=== PATIENT | female | born 1940 | race Caucasian/White ===

== ENCOUNTER 2017-07-04 01:52 | Observation (INO) | payer MEDICARE ==
[2017-07-04] MEDS ORDERED: Nitroglycerin 2% Ointment 1 INCH/1 GM Packet ONE ×3 (02:12→09:45)
[2017-07-04] MEDS ORDERED: Nitroglycerin 0.4 MG TAB (25 Tab Bottle) ONE (02:12)
[2017-07-04 02:37] LABS: #Basophils 0.1 thou/uL (0.0-0.2); #Eosinphils 0.2 thou/uL (0.0-0.7); #Lymphocytes 2.7 thou/uL (1.20-3.40); #Monocytes 0.4 thou/uL (0.11-0.59); #Neutrophils 2.6 thou/uL (1.40-6.50); %Basophils 1.5 % (0.0-1.0); %Eosinophils 3.3 % (0.0-10.0); %Lymphocytes 45.3 % (21.0-51.0); %Monocytes 6.3 % (0.0-10.0); Hematocrit 44.8 % (36.0-47.0); Mean Platelet Volume 7.4 fL (7.4-10.4); Red Blood Cell (RBC) Count 4.48 mill/uL (4.20-5.40)
[2017-07-04 02:49] LABS: PTT 26.5 SEC (22.9-36.1); Prothrombin Time 12.2 SEC (12.0-14.7)
[2017-07-04 02:55] LABS: ALT (SGPT) 20 U/L (8-55); AST (SGOT) 28 U/L (5-34); Alkaline Phosphatase 91 U/L (40-150); Anion Gap 15 mmol/L (10-20); BUN (Urea Nitrogen) 19 mg/dL (9.8-20.1); Bilirubin, Total 0.6 mg/dL (0.2-1.2); CK (CPK) 93 U/L (29-168); Calc. Creatinine Clearance 0 mL/min (70-130); Carbon Dioxide 24 mmol/L (23-31); Chloride 106 mmol/L (98-107); Estimated GFR-MDRD 77; Globulin 3.6 g/dL (2.4-3.5); Lipase 39 U/L (8-78); Protein, Total 8.3 g/dL (6.0-8.3)
[2017-07-04 02:57] LABS: Troponin I Less than 0.010 ng/mL (< 0.028)
[2017-07-04] MEDS ORDERED: Morphine 10 MG/ML VIAL ONE (03:46)
[2017-07-04] MEDS ORDERED: Lidocaine Viscous Sol 2% 15 ml UD Cup ONE ×2 (03:47→07:23)
[2017-07-04] MEDS ORDERED: Mag-Al 1200 mg/1200 mg/30 ML UDCUP ONE (03:47)
[2017-07-04] MEDS ORDERED: methylPREDNISolone Sod Succ/PF 125 MG/2 ML VIAL ONE (03:51)
[2017-07-04] MEDS ORDERED: Famotidine/PF 20 mg/2ml Vial ONE (03:51)
[2017-07-04] MEDS ORDERED: diphenhydrAMINE 50 MG/ML VIAL ONE (03:51)
[2017-07-04] MEDS ORDERED: Ondansetron HCl/PF 4 MG/2 ML Vial ONE (04:09)
[2017-07-04 07:00] LABS: Troponin I Less than 0.010 ng/mL (< 0.028)
--- NOTE | 2017-07-04 08:21 | RAD ---
PORTABLE UPRIGHT FRONTAL CHEST: Date: 07/04/17 COMPARISON: None. HISTORY: Mid sternal chest pain radiating to the back. FINDINGS: No pneumothorax, pleural fluid, lobar consolidation, or alveolar edema. Heart and mediastinal contou r grossly unremarkable. IMPRESSION: No acute findings. POS: [facility]
[2017-07-04 09:35] LABS: Troponin I Less than 0.010 ng/mL (< 0.028)
--- NOTE | 2017-07-04 09:49 | CT ---
PRELIMINARY REPORT/[facility]/EMERGENCY AFTER HOURS PROCEDURE: EXAM: CT Angiography Chest With Intravenous Contrast CLINICAL HISTORY: 77 years old, female; Pain; Chest pain; Type not specified; Abdominal pain; Generalized; Patient HX: R/O dissection TECHNIQUE: Axial computed tomographic angiography images of the chest with intravenous contrast using pulmonary embolism protocol. CONTRAST: 100 mL of ISOVUE administered intravenously. COMPARISON: No relevant prior studies available. FINDINGS: Pulmonary arteries: The pulmonary arteries are not enlarged. There is no evidence of peripheral fill ing defects within the pulmonary arterial circulation to suggest pulmonary embolism. Aorta: There is no evidence of aortic dissection, leak, rupture, or other complications. The aorta i s normal. Lungs: There are scarring at the lung apices. No mass. Pleural space: Normal. No significant effusion. No pneumothorax. Heart: Normal. No cardiomegaly. No significant pericardial effusion. No evidence of RV dysfunction. Mediastinum: The trachea is normal. Thyroid: The thyroid gland is normal. Bones/joints: No acute fracture. No dislocation. Soft tissues: Normal. Lymph nodes: Normal. No enlarged lymph nodes. IMPRESSION: There is no evidence of aortic dissection, leak, rupture, or other complications. EXAM: CT Angiography Abdomen With Intravenous Contrast EXAM DATE/TIME: Exam ordered 07/04/2017 4:36 AM CLINICAL HISTORY: 77 years old, female; Pain; Chest pain; Type not specified; Abdominal pain; Generalized; Patient HX: R/O dissection TECHNIQUE: Axial computed tomographic angiography images of the abdomen with intravenous contrast. CONTRAST: 100 mL of ISOVUE administered intravenously. COMPARISON: No relevant prior studies available. FINDINGS: Aorta: There is no evidence of aortic dissection, leak, rupture, or other complications. The aorta i s normal. Celiac trunk and mesenteric arteries: No acute findings. No occlusion or significant stenosis. Renal arteries: No acute findings. No occlusion or significant stenosis. Liver: There are no focal liver lesions present. Gallbladder and bile ducts: The gallbladder is normal. There is no evidence of biliary ductal dilati on. No calcified stones. Pancreas: The pancreas is normal. No ductal dilation. Spleen: The spleen is normal. Adrenals: Normal. No mass. Kidneys and ureters: The left kidney is normal. The RIGHT kidney is slightly ectopic in location in the RIGHT pelvis, partially visualized. No hydronephrosis. Stomach and bowel: There is a markedly dilated loop of jejunum in the LEFT upper quadrant, incomplet judi visualized but suggestive of high-grade small bowel obstruction. The stomach is normal. No mucos al thickening. Intraperitoneal space: Normal. No significant fluid collection. No free air. Bones/joints: No acute fracture. No dislocation. Soft tissues: Normal. No mass. Lymph nodes: Normal. No enlarged lymph nodes. Other findings: There are clips within the LEFT upper quadrant. IMPRESSION: 1. There is no evidence of aortic dissection, leak, rupture, or other complications. 2. There is a markedly dilated loop of jejunum in the LEFT upper quadrant, incompletely visualized b ut suggestive of high-grade small bowel obstruction. Consider imaging of the abdomen with pelvis for further evaluation. Thank you for allowing us to participate in the care of your patient. Dictated and Authenticated by: Dionicio Joyce MD 07/04/2017 5:28 AM Central Time ([place] \T\ [place]) FINAL REPORT EMERGENCY/AFTER HOURS STUDY CT ANGIOGRAM THORAX WITH IV CONTRAST AND 3D RECONSTRUCTIONS: CT ANGIOGRAM ABDOMEN WITH IV CONTRAST AND 3D RECONSTRUCTIONS: 07/04/2017 HISTORY: Chest pain. IMPRESSION: 1. The thoracic and abdominal aorta are normal in caliber without evidence of an aortic dissection. 2. No CT evidence of a pulmonary embolus. 3. Patent mesenteric vessels. 4. Single patent bilateral renal arteries. 5. Mild chronic lung changes with biapical pleural and parenchymal scarring. 6. Surgical clips in the anterior abdomen. 7. Nonspecific dilated loop of small bowel in the visualized mid abdomen, incompletely imaged or ev aluated. A similar finding was seen on a prior study on 09/17/2004, but the degree of dilatation wa s less prominent. Findings appear to represent post surgical changes of this loop of bowel in this region. 8. Cholelithiasis. The findings are in agreement with the preliminary report by Ney. POS: [facility]
[2017-07-04] MEDS ORDERED: Ondansetron HCl/PF 4 MG/2 ML Vial IVP PRN (10:16)
[2017-07-04] MEDS ORDERED: Acetaminophen 325 MG TAB PO PRN (10:16)
[2017-07-04] MEDS ORDERED: Ondansetron ODT 4 MG TAB SL PRN (10:16)
[2017-07-04 10:53] VITALS: BMI 17.7
[2017-07-04] MEDS: Sodium Chloride 0.9% 1,000 ML IV SCH ×2 (11:11→22:05)
[2017-07-04] MEDS ORDERED: HYDROcodone/Acetaminophen 5/325 mg Tablet PO PRN (12:17)
[2017-07-04] MEDS ORDERED: Zolpidem Tartrate 5 MG TAB PO PRN (12:17)
--- NOTE | 2017-07-04 14:24 | HP ---
DATE OF ADMISSION: 07/04/2017 ADMITTING PHYSICIAN: Michael Cui M.D. HISTORY OF PRESENT ILLNESS: The patient is a 77-year-old female who states she was woken up early t his morning at approximately 2 a.m. with midsternal chest pain and discomfort, it seemed to radiate straight through to the back. She did not have any nausea, vomiting, diarrhea, some shortness of br eath. She states she was not able to find comfort. She denied any fevers associated with this. Stephanie syed has no prior history of atherosclerotic coronary artery disease. The pain continued, she did beco me somewhat concerned over her cardiac status. She brought herself to the emergency room with her evonne deleon. She was seen and evaluated in the emergency room. She states she was given some pain medic ine which seemed to relieve some of her pain. Initial evaluation did not reveal any source of cardi ac disease. She states she is now feeling better. As noted she has no prior history of atheroscler otic coronary artery disease. Otherwise, no other medical complaints are noted. She states she is feeling well. ALLERGIES: She is allergic to IODINE, NONSTEROIDAL ANTI-INFLAMMATORY AGENTS, PENICILLIN. CURRENT MEDICATIONS: Levothyroxine, atenolol and a muscle relaxer. PAST MEDICAL HISTORY: Significant for previous colon surgery requiring colonic resection due to can cer. She had her entire colon with large colon was removed. She has a previous history of appendec abimael. SOCIAL/PERSONAL HISTORY: She is . She does not smoke nor does she drink alcohol. REVIEW OF SYSTEMS: GASTROINTESTINAL: Negative. GENITOURINARY: Negative. CARDIOVASCULAR: Negative. PULMONARY: Otherwise negative. NEUROLOGIC: Otherwise, negative. FAMILY HISTORY: Noncontributory at this time. PHYSICAL EXAMINATION: VITAL SIGNS: Temperature 98.4, BP 153/65, pulse 66, respirations 16, O2 sats 96% on room air. GENERAL: She is alert, active, does not appear in any distress. HEENT: Normocephalic, atraumatic. Extraocular muscles are intact. Sclerae and conjunctivae clear. NECK: Supple, full range of motion, no bruits auscultated. Thyroid is midline without thyromegaly or thyroid masses. LUNGS: Clear. HEART: Reveals a regular rate and rhythm without murmurs, gallops or rubs. ABDOMEN: Soft, there are some minimal right upper quadrant tenderness, without rebound or guarding. Bowel sounds are present and active. No hepatosplenomegaly is noted. EXTREMITIES: No clubbing, edema or cyanosis. LABORATORY AND X-RAY: Her white blood count is 6.0, hemoglobin 14.6, hematocrit 44.8. Chemistry: Sodium 141, potassium 3.5, chloride 106, CO2 24, creatinine 0.74, serial cardiac enzymes, troponin x [address] scan dissection protocol was performed which did reveal no evidence of acute cardiac or pulmona ry issues. There was some consideration due to a markedly dilated loop of jejunum of the left lower quadrant, possible obstructive process. There is no physical or no clinical findings that support that at this time. Chest x-ray was clear. EKG revealed sinus rhythm. IMPRESSION: Midsternal chest pain and discomfort of acute onset. PLAN: 1. The patient will undergo nuclear medicine stress testing. 2. Right upper quadrant gallbladder ultrasound is to be performed. 3. Keep under observation through the night.
[2017-07-04] MEDS ORDERED: ISOVUE-370 76%-LOCM 1 ML ONE (15:37)
[2017-07-04] MEDS ORDERED: Famotidine/PF 20 mg/2ml Vial SLOW IVP SCH (16:00)
--- NOTE | 2017-07-04 16:28 | ULT ---
RIGHT UPPER QUADRANT ULTRASOUND: Date: 07-04-17 History: Right upper quadrant abdominal pain. FINDINGS: There is a nonmobile shadowing echogenic focus seen along the nondependent portion of the body of th e gallbladder wall, most consistent with a calcification. Given non-mobility, this could be related to adherent calcification, possibly calcification in the wall of the gallbladder. This calcification was seen on recent CT abdomen as well. There is a much smaller subcentimeter increased echogenic fo cus also seen in the nondependent portion of the gallbladder lumen which demonstrates minimal chief controller station ior shadowing and may represent additional calcification. No mobile gallbladder calculi are seen. Th ere is no gallbladder wall thickening or pericholecystic fluid seen. The common duct measures 0.5 cm in diameter which is within normal limits. The visualized portions of the IVC, visualized portions of the pancreas, and liver demonstrate a nor mal sonographic appearance. Right kidney is located within the right lower quadrant/upper pelvis. Kidney otherwise demonstrates a normal sonographic appearance but is rotated. IMPRESSION: 1. Calcifications along the nondependent portion of the gallbladder lumen which are nonmobile. Focal calcification of the gallbladder wall cannot be entirely excluded. No mobile gallbladder calculi ar e visualized. There is no gallbladder wall thickening or pericholecystic fluid. The common duct is n ormal in caliber. 2. There is a kidney located within the right upper pelvis. Based on recent CT abdomen, this is prob ably the patient's [facility] kidney. However, the right kidney, although rotated, does demonstrate a no rmal sonographic appearance. POS: [facility]
[2017-07-05] MEDS: Sodium Chloride 0.9% 1,000 ML IV SCH (05:43)
[2017-07-05] MEDS ORDERED: diphenhydrAMINE 25 MG CAP PO PRN (07:31)
[2017-07-05] MEDS ORDERED: Acetaminophen 325 MG TAB PO PRN (07:31)
[2017-07-05] MEDS ORDERED: Fish Oil 1,000 MG CAP PO SCH ×2 (09:00)
[2017-07-05] MEDS ORDERED: Calcium Carbonate + Vit D 1 TAB PO SCH (09:00)
[2017-07-05] MEDS ORDERED: Meloxicam 7.5 MG TAB PO SCH (09:00)
[2017-07-05] MEDS ORDERED: Atenolol 50 MG TAB PO SCH (09:00)
[2017-07-05] MEDS ORDERED: Levothyroxine Sodium 75 MCG TAB PO SCH (09:00)
[2017-07-05] MEDS ORDERED: Non-Formulary Item 1 EACH (Calcium Carbonate/Vitamin D3 [Calcium 600 + Vitamin D] 1 TABLE PO SCH (09:00)
--- NOTE | 2017-07-05 09:44 | PRG ---
DATE OF SERVICE: 07/05/2017 SUBJECTIVE: Ms. Meadows is resting comfortably. She had one episode of chest pain last night for w hich she received medication. PHYSICAL EXAMINATION: VITAL SIGNS: Blood pressure 159/68, temperature 98.5, pulse 65, O2 sat 98%. LUNGS: Clear. HEART: Reveals no murmur. IMAGING: Ultrasound report of her gallbladder shows possible intraluminal calcifications, it is dif ficult to figure out if it is entirely within the gallbladder or not. There is a kidney in the righ t upper pelvis, which correlated with CT scan shows that the kidney is not in anatomical location. No evidence of any other findings are otherwise noted. IMPRESSION: Chest pain. PLAN: 1. The patient will have a stress test today. 2. If stress test is negative, then we will need to consider gallbladder surgery.
[2017-07-05 10:50] VITALS: BP 157/77; TEMP 98
--- NOTE | 2017-07-05 14:38 | NM ---
NUCLEAR MEDICINE CARDIAC STRESS AND REST CARDIAC SPECT WITH EJECTION FRACTION AND WALL MOTION: History: 77-year-old female with chest pain and shortness of breath. FINDINGS: Adenosine sestamibi study was performed. Multiple images performed in the short axis and vertical an d horizontal long axis. No scan evidence for evidence for infarct or ischemia. TID 1.16 LHR 0.33 EDV 51 ml EF 87% IMPRESSION: Normal cardiac stress/rest with EF and wall motion. POS: [facility]
--- NOTE | 2017-07-05 17:21 | DIS ---
DATE OF ADMISSION: 07/04/2017 DATE OF DISCHARGE: 07/05/2017 DISCHARGE DIAGNOSIS: Chest pain, probably related to cholelithiasis. ADMITTING PHYSICIAN: Dr. Michael Cui. HOSPITAL SUMMARY: The patient is a 77-year-old female who presented to the emergency room complaini ng of mid epigastric pain. She was seen and evaluated in the ER, acute coronary syndrome was ruled out by examination, EKG as well as cardiac enzymes. She underwent further cardiac stress testing wh ich was normal. Gallbladder ultrasound did reveal probable intraluminal stones, could not tell they were adhered to the gallbladder wall. No evidence of any cholecystitis was otherwise noted and the patient's hospital course was otherwise unremarkable. She was discharged home on her home medicati ons. I discussed the findings was discussed with the patient and her . Stress test being no rmal, I thought she can proceed with surgical consult. She has requested Dr. Judd's referral made after discharge.
[2017-07-05] MEDS ORDERED: Acetaminophen 500 MG TAB PO SCH (21:00)
[2017-07-05] MEDS ORDERED: diphenhydrAMINE 25 MG CAP PO SCH (21:00)
--- NOTE | 2017-07-09 13:46 | EKG ---
Test Reason : Blood Pressure : / mmHG Vent. Rate : 073 BPM Atrial Rate : 073 BPM P-R Int : 000 ms QRS Dur : 072 ms QT Int : 410 ms P-R-T Axes : 000 065 006 degrees QTc Int : 451 ms Normal sinus rhythm with 1st degree A-V block Nonspecific T wave abnormality Abnormal ECG Confirmed by KAYLIE BUCKNER, JACOB ([id number]), acquisitions editor SHILPA SOLANO ([id number]) on 07/09/2017 1:46:23 PM Referred By: Confirmed By:JACOB LOTT MD
--- NOTE | 2017-07-09 13:54 | EKG ---
Test Reason : Blood Pressure : / mmHG Vent. Rate : 055 BPM Atrial Rate : 055 BPM P-R Int : 128 ms QRS Dur : 076 ms QT Int : 448 ms P-R-T Axes : 084 062 038 degrees QTc Int : 428 ms Sinus bradycardia Otherwise normal ECG Confirmed by KAYLIE BUCKNER, JACOB ([id number]), health editor SHILPA SOLANO ([id number]) on 07/09/2017 1:54:22 PM Referred By: Confirmed By:JACOB LOTT MD
[2017-07-12] MEDS ORDERED: Alendronate Sodium 70 mg Tablet PO SCH (06:00)
== END 2017-07-05 13:44 | disposition home or self-care (01) ==
LOC: ERS 01:52 → ERHOLD 06:09 → 2NO 10:05
PROVIDERS: ADMIT Family Medicine; ATTEND Family Medicine
DX: R07.89 Other chest pain (principal); Z91.041 Radiographic dye allergy status; Z88.6 Allergy status to analgesic agent; Z88.0 Allergy status to penicillin
CPT/HCPCS: 71010; 71275; 76705; 78452; 80053; 82550; 82553; 83690; 84484 ×2; 85025; 85610; 85730; 93005; 93017; 94760; 96361 ×3; 96374; 96375; 96376 ×2; 99285; A9500; G0378; 36415; A4216; J0153; J1200; J2270; J2405; J2930; S0028

== ENCOUNTER 2017-07-08 08:27 | Day surgery (SDC) | payer MEDICARE ==
--- NOTE | 2017-07-05 14:41 | HP ---
HISTORY OF PRESENT ILLNESS: Audrey Meadows is a 77-year-old female hospitalized with epigastric p ain and back radiation this hospitalization by Dr. Michael Cui. The patient had a cardiac nuclear stress test negative for ischemia, normal cardiac function. CT scan dissection protocol performed and it was normal. Ultrasound of the abdomen obtained suspecting biliary etiology 07/04/2017 reveal ed gallstones with bile duct of 5 mm. Patient's laboratories reveal hemoglobin of 14 and white coun t of 6. Liver function tests are normal. Basic metabolic profile normal. The patient has been dis charged home today. Dr. Cui asked me to see her regarding her cholelithiasis. She desires laparo scopic cholecystectomy as an outpatient later today. She will call the office and we will schedule this. ALLERGIES: IODINE, NSAIDS, PENICILLINS. TOBACCO: None. ALCOHOL: None. MEDICATIONS: Benadryl p.r.n., Mobic 7.5 mg a day, Synthroid 75 mcg a day, calcium 600 plus vitamin D daily, atenolol 50 mg daily, Fosamax 70 mg every 7 days, and Tylenol p.r.n. PAST SURGICAL HISTORY: Appendectomy as a child, total abdominal colectomy and ileoproctostomy due t o colon cancer and diffuse polyps, ureteral stent placed in the past and removed. PAST MEDICAL HISTORY: History of colon cancer. LABORATORIES: As noted above. PHYSICAL EXAMINATION: VITAL SIGNS: On exam, 5 feet and 6, 110 pounds, 17 BMI, 98 degrees, 71, 157/77. HEAD, EARS, EYES, NOSE, AND THROAT: Unremarkable. Sclerae nonicteric. Skin nonjaundiced. Lymphad enopathy not present in neck, axilla, or groins. NEUROLOGIC: Neurologically intact. No focal deficits. No ankle edema. Palpable pedal pulses. W rist, positive pulses. LUNGS: Clear to auscultation. CARDIAC: Regular rate and rhythm without murmur or gallop. ABDOMEN: Soft, flat, nondistended, nontender, no masses. Well-healed midline scar in abdomen from previous colectomy. EXTREMITIES: Unremarkable. ASSESSMENT AND PLAN: Symptomatic cholelithiasis. Recommend laparoscopic video cholecystectomy. kunal will call the office when she is ready to schedule. I have discussed with her risk of operation i ncluding infection, bleeding, reoperation, biliary injury, possibly open procedure and she consents.
[2017-07-07 13:51] VITALS: BMI 17.7
[2017-07-08] MEDS ORDERED: Lidocaine 2% w/Epinephrine 1:200K 20 ML VIAL ONE (08:39)
[2017-07-08] MEDS ORDERED: Bupivacaine PF 0.5% 30 ML VIAL ONE (08:39)
[2017-07-08] MEDS ORDERED: Fentanyl 250 MCG/5 ML VIAL ONE (09:05)
[2017-07-08] MEDS ORDERED: Levofloxacin 500 mg/D5W 100 ml Premix Bag ONE (09:08)
[2017-07-08] MEDS ORDERED: Glycopyrrolate 0.2 MG/ML 5 ML SYRINGE ONE (09:46)
[2017-07-08] MEDS ORDERED: Lidocaine 1% PF 5 ML VIAL ONE (09:46)
[2017-07-08] MEDS ORDERED: Propofol 200 MG/20 ML VIAL ONE (09:46)
[2017-07-08] MEDS ORDERED: Ondansetron HCl/PF 4 MG/2 ML Vial ONE (09:46)
--- NOTE | 2017-07-08 11:15 | OP ---
DATE OF PROCEDURE: 07/08/2017 PREOPERATIVE DIAGNOSES: History of total abdominal colectomy, ileoproctostomy, anastomosis, open pr ocedure laparotomy xiphoid to pubis, cholecystitis, cholelithiasis. POSTOPERATIVE DIAGNOSIS: History of total abdominal colectomy, ileoproctostomy anastomosis, open pr ocedure laparotomy xiphoid to pubis, cholecystitis and cholelithiasis. Adhesions from prior surgery . PROCEDURE: Laparoscopic adhesiolysis, laparoscopic cholecystectomy. NOTE: Adhesiolysis was required to gain access to the operative site. Adhesions were extensive fro m prior open colectomy. SURGEON: Dr. Michael Judd ANESTHESIA: General. Local 0.5% Marcaine, 30 mL, mixed with 2% Xylocaine with epinephrine 10 mL. PROCEDURE IN DETAIL: The patient was taken to the operating room where under general anesthesia, ab cortes was prepared with ChloraPrep, draped in routine fashion. Due to the prior midline laparotomy scar, right subcostal midclavicular incision made and pneumoperitoneum attempted with the Veress nee dle, but I did not get good return pressure, thus the right xiphoid incision made and pneumoperitone um to 15 mmHg obtained with the Veress needle, replacing it with a 5 port under laparoscopic visuali zation placement of the port. This was then exchanged for an 11 port, once it was noted to be in go od location. Right lateral subcostal ports placed midclavicular and anterior axillary lines and 5 p orts placed. These were placed under laparoscopic visualization. There were adhesions in the midli ne, cleared with laparoscopic sharp dissection and clearing enough adhesions to gain access to the s upraumbilical midline scar where incision was made and a 5 port placed and laparoscope moved to this port. At this point, the liver was densely adhesed to underlying viscera. I did find an area late rally where there were filmy adhesions to the lateral edge of the liver that I could visualize and c arefully took these down lateral to medial, identifying the gallbladder, grasping the gallbladder fu ndus, reflecting it cephalad and dissecting adhesions from the gallbladder body down to the infundib ulum which was grasped and reflected laterally. Cystic artery and duct revealed a critical view 2/3 the cystic plate, cystic artery and duct doubly clipped proximally, divided, and gallbladder dissec anastasia free from the liver bed obtaining good hemostasis prior to division of final peritoneal attachme nts. Gallbladder and contents removed and submitted to Pathology. Good hemostasis ensured with cau sharon. Irrigant and pneumoperitoneum evacuated. All instruments removed and all skin incisions appr oximated with interrupted subdermal 4-0 Monocryl and DermaGlue applied.
[2017-07-08] MEDS ORDERED: Fentanyl 100 MCG/2 ML VIAL ONE (11:21)
[2017-07-08] MEDS ORDERED: Promethazine HCl 25 MG/ML VIAL ONE (12:07)
== END 2017-07-08 12:50 | disposition home or self-care (01) ==
LOC: SDC 08:27
PROVIDERS: ATTEND Specialist
PROC: 0FT44ZZ Resection of Gallbladder, Percutaneous Endoscopic Approach (ICD-10-PCS; principal; 2017-07-08)
DX: K80.12 Calculus of gallbladder with acute and chronic cholecystitis without obstruction (principal); K82.8 Other specified diseases of gallbladder; Z79.1 Long term (current) use of non-steroidal anti-inflammatories (NSAID); Z79.899 Other long term (current) drug therapy; Z88.0 Allergy status to penicillin; Z88.6 Allergy status to analgesic agent; Z91.041 Radiographic dye allergy status; Z96.1 Presence of intraocular lens; Z90.49 Acquired absence of other specified parts of digestive tract; Z98.890 Other specified postprocedural states; Z85.038 Personal history of other malignant neoplasm of large intestine
CPT/HCPCS: 88304; 96374; J0131; J1956; J2001; J2270; J2405; J2550; J2704; J3010; S0020

== ENCOUNTER 2017-07-29 06:56 | Inpatient (IN) | payer MEDICARE ==
[2017-07-29] MEDS ORDERED: Nitroglycerin 0.4 MG TAB (25 Tab Bottle) ONE (07:15)
[2017-07-29] MEDS ORDERED: Clopidogrel Bisulfate 75 MG TAB ONE (07:15)
[2017-07-29] MEDS ORDERED: Ondansetron HCl/PF 4 MG/2 ML Vial ONE (07:21)
[2017-07-29 07:25] LABS: #Basophils 0.1 thou/uL (0.0-0.2); #Eosinphils 0.3 thou/uL (0.0-0.7); #Lymphocytes 2.3 thou/uL (1.20-3.40); #Monocytes 0.3 thou/uL (0.11-0.59); #Neutrophils 2.1 thou/uL (1.40-6.50); %Basophils 1.5 % (0.0-1.0); %Monocytes 5.2 % (0.0-10.0); Hematocrit 43.6 % (36.0-47.0); Mean Platelet Volume 6.8 fL (7.4-10.4); Red Blood Cell (RBC) Count 4.38 mill/uL (4.20-5.40); White Blood Cell (WBC) Count 5.1 thou/uL (4.8-10.8)
[2017-07-29 07:44] LABS: ALT (SGPT) 34 U/L (8-55); AST (SGOT) 82 U/L (5-34); Alkaline Phosphatase 172 U/L (40-150); Anion Gap 12 mmol/L (10-20); BUN (Urea Nitrogen) 15 mg/dL (9.8-20.1); Bilirubin, Total 1.1 mg/dL (0.2-1.2); CK (CPK) 73 U/L (29-168); Calc. Creatinine Clearance 0 mL/min (70-130); Calcium 9.9 mg/dL (7.8-10.44); Carbon Dioxide 29 mmol/L (23-31); Chloride 104 mmol/L (98-107); Estimated GFR-MDRD 73; Globulin 3.3 g/dL (2.4-3.5); Lipase 28 U/L (8-78); Protein, Total 7.6 g/dL (6.0-8.3)
[2017-07-29 07:48] LABS: Troponin I Less than 0.010 ng/mL (< 0.028)
[2017-07-29] MEDS ORDERED: Nitroglycerin 2% Ointment 1 INCH/1 GM Packet ONE (07:53)
--- NOTE | 2017-07-29 09:13 | RAD ---
PORTABLE CHEST 1 VIEW: Date: 07/29/17 HISTORY: 77-year-old female with history of chest pain. COMPARISON: 07/04/17. FINDINGS: Monitor leads overlie the chest. Increased linear and interstitial markings bilaterally, consistent w ith some stable chronic change. There is borderline hyperinflation. Biapical pleural thickening. IMPRESSION: Stable chronic changes. No acute intrathoracic disease. POS: [facility]
[2017-07-29] MEDS ORDERED: Morphine 4 MG/ML VIAL ONE (09:16)
--- NOTE | 2017-07-29 10:24 | ULT ---
GALLBLADDER ULTRASOUND: History: 77-year-old female with abdominal pain and chest pain status post gallbladder removal. FINDINGS: Somewhat diffuse coarse liver echogenicity. Common bile duct 0.3 cm. No intrahepatic ductal dilation. Visualized pancreas and right kidney are unremarkable. IMPRESSION: Status post cholecystectomy. No ductal dilatation. No other significant acute process. POS: [facility]
[2017-07-29 12:45] LABS: Troponin I Less than 0.010 ng/mL (< 0.028)
[2017-07-29] MEDS ORDERED: Ondansetron ODT 4 MG TAB PO PRN (12:45)
[2017-07-29] MEDS ORDERED: Ondansetron HCl/PF 4 MG/2 ML Vial IVP PRN (12:45)
[2017-07-29 12:51] VITALS: BMI 16.7
[2017-07-29] MEDS ORDERED: Acetaminophen 500 MG TAB PO PRN (14:34)
[2017-07-29] MEDS ORDERED: traMADol HCl 50 MG TAB PO PRN ×2 (16:08→20:37)
--- NOTE | 2017-07-29 16:17 | CON ---
DATE OF CONSULTATION: 07/29/2017 REASON FOR CONSULTATION: Chest pain. PRIMARY CARE PROVIDER: Dex Norris M.D. HISTORY OF PRESENT ILLNESS: Ms. Meadows is a pleasant 77-year-old woman who recently presented with chest pain. She states she awoke at 6 a.m. with pain. She states her pain is better with lying on h er right side, worse with lying on her left side and lying supine. No nausea, vomiting, diaphoresis or other associated symptoms. She has no previous history of underlying coronary artery disease. PAST MEDICAL HISTORY: Cholecystectomy and appendectomy. ALLERGIES: IODINE, PENICILLIN, and NONSTEROIDAL THERAPY. MEDICATIONS: Include levothyroxine and atenolol. SOCIAL HISTORY: No current tobacco or alcohol use. REVIEW OF SYSTEMS: Ten point review of systems reviewed and as above, otherwise negative. PHYSICAL EXAMINATION: GENERAL: Patient is a pleasant female who is in no acute distress. The patient appears her stated a ge. VITAL SIGNS: Blood pressure 136/63, pulse 63, temperature 97.9. NEUROLOGIC: The patient is alert and oriented times 3 with no focal neurologic deficits. HEENT: Sclerae without icterus. Mouth has moist mucous membranes with normal pallor. NECK: No JVD. Carotid upstroke brisk. No bruits bilaterally. LUNGS: Clear to auscultation with unlabored respirations. BACK: No scoliosis or kyphosis. CARDIAC: Regular rate and rhythm with normal S1 and S2. No S3 or S4 noted. No significant rubs, mu rmurs, thrills, or gallops noted throughout the precordium. PMI is not displaced. There is no jake ternal heave. ABDOMEN: Soft, nontender, nondistended. No peritoneal signs present. No hepatosplenomegaly. No abnormal striae. EXTREMITIES: 2+ femoral and 2+ dorsalis pedis pulses. No cyanosis, clubbing, or edema. SKIN: No gross abnormalities. PERTINENT LABORATORY DATA AND IMAGIN. CK and troponin negative. 2. Hemoglobin 14.3, troponin negative. 3. EKG: Normal sinus rhythm, normal EKG. When compared to previous EKG, no changes are noted. IMPRESSION: Atypical chest pain. RECOMMENDATIONS: We will add tramadol in addition to Tylenol. She is allergic to NONSTEROIDAL thera py. May need to ask what her true allergy is because she would likely benefit from ibuprofen in alice tion to Toradol. If her symptoms continue, may consider a noninvasive stress study. She does state though she had a noninvasive stress study performed recently and her director of human resources is Dr. Dex frances although there is no history of patient being seen in the office by Dr. Dex Norris. Recommend kunal bruno with Doppler.
[2017-07-29] MEDS ORDERED: Zolpidem Tartrate 5 MG TAB PO PRN (20:33)
[2017-07-29] MEDS ORDERED: cloNIDine 0.1 MG TAB PO PRN (20:34)
[2017-07-29] MEDS ORDERED: Ondansetron ODT 4 MG TAB SL PRN (20:35)
[2017-07-29] MEDS: Atenolol 50 MG TAB PO SCH (21:03)
--- NOTE | 2017-07-29 21:20 | HP ---
HISTORY OF PRESENT ILLNESS: Ms. Meadows is a pleasant 77-year-old female treated by Dr. Jazlyn Cui, who was hospitalized for chest pain. She reports being in her usual state of health unt ny about 6:00 this morning when she was just doing nonexertional chores around the house when she beg an having some chest pain that was fairly intense that she describes as "like a ton of bricks." It w as at her sternum and radiated to her back, was associated with nausea, but no diaphoresis and no maksim rtness of breath. She was previously hospitalized on 07/04 and had a negative stress test for a chance lar chest pain, but what did happen was that the gallstones were noted and she subsequently underwent an apparent uncomplicated laparoscopic cholecystectomy. PAST MEDICAL HISTORY: 1. Negative cardiac stress test a few weeks ago. 2. Colon cancer, status post multiple subtotal colectomies with an eventual entire colectomy. She a lso reports lysis of adhesions. She has also had an appendectomy, ?ureteral obstruction, status post stent placement. PAST MEDICAL HISTORY: 1. History of hypertension without current medications for such. 2. Hypothyroidism. 3. Postmenopausal state. 4. History of dysrhythmia treated with medication (exact diagnosis at this time unknown). 5. Bilateral macular degeneration. CURRENT MEDICATIONS: 1. Synthroid 75 mcg daily. 2. Atenolol 50 mg daily. ALLERGIES AND SENSITIVITIES: ASPIRIN causes a rash, PENICILLIN causes rash and IODINE causes rash. SOCIAL HISTORY: The patient is to her Casey for many years. They have 3 children. 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 Her shinto preference is Hinduism of [facility] and she attends bible classes. Records revealed that she is a nonsmoker and does not drink alcoh ol. PHYSICAL EXAMINATION: VITAL SIGNS: Weight 104 pounds, blood pressure 136/63, O2 sat 96%, respiratory rate 16, pulse 63 and temperature 97.9. GENERAL: Alert, pleasant, in no acute distress. Somewhat loquacious at times. HEAD: Normocephalic, atraumatic. No conjunctivitis. Oral cavity without erythema or exudate. NECK: Supple without lymphadenopathy or thyromegaly. LUNGS: Clear to auscultation without crackles or wheezes. CARDIAC: Regular rate and rhythm without murmur, gallop or rub. ABDOMEN: Soft, nontender, bowel sounds present. SKIN: With normal texture and appearance. EXTREMITIES: Without clubbing, cyanosis or edema. NEUROLOGIC: 5/5 motor strength in her biceps, triceps, handgrips, plantar flexion and dorsiflexion. LABORATORY AND X-RAY FINDINGS: White blood cell count 5.1 and hemoglobin 14.3. INR is 0.9. Basic m etabolic panel is essentially normal. Troponin I not elevated. Electrocardiogram reported is normal (hard copy not available on the chart at this time), but is requested) ASSESSMENT: 1. Chest pain with a worrisome description and negative recent evaluation. 2. Hypothyroidism. 3. Report of hypertension. 4. Colon cancer, status post multiple surgeries and radiation therapy. 4. History of abdominal adhesions. PLAN: 1. Hospitalization. 2. Serial cardiac enzymes. 3. Cardiology consultation.
[2017-07-30] MEDS ORDERED: Acetaminophen 500 MG TAB PO PRN (02:00)
[2017-07-30] MEDS: traMADol HCl 50 MG TAB PO PRN ×2 (03:24→08:25)
[2017-07-30] MEDS: Levothyroxine Sodium 75 MCG TAB PO SCH (05:13)
[2017-07-30] MEDS ORDERED: predniSONE 20 MG TAB PO SCH ×2 (08:00→09:00)
[2017-07-30] MEDS: Calcium Carbonate + Vit D 1 TAB PO SCH (08:27)
[2017-07-30] MEDS: Fish Oil 1,000 MG CAP PO SCH (08:27)
[2017-07-30] MEDS: Ondansetron HCl/PF 4 MG/2 ML Vial IVP PRN ×2 (12:17→19:15)
--- NOTE | 2017-07-30 14:49 | PRG ---
DATE OF SERVICE: 07/30/2017 ROOM: 244. SUBJECTIVE: Ms. Meadows was hospitalized yesterday for chest pain. She had no elevation in her trop onin I testing. She was seen in consultation by Cardiology who believes her chest pain symptoms to b e likely noncardiac in origin. An echo with Doppler study is ordered and not yet resulted. The diego ent indicates still having periodic chest pain that occurs with the change of position in her bed. S he notes if she lies on one side or the other, the chest pain is more prominent. She also reports ta martita medications like Motrin in the past and the problem with such medication is she reports having s ome gastrointestinal bleeding. She reports that this is not a recent occurrence. PHYSICAL EXAMINATION: VITAL SIGNS: Weight 103 pounds, blood pressure 142/68, temperature 98.3, pulse 58, respiratory rate 18, O2 saturation 98%. GENERAL: Alert, pleasant, no acute distress. HEENT: No conjunctivitis. LUNGS: Clear to auscultation without crackles or wheezes. CARDIAC: Regular rate and rhythm without murmur, gallop or rub. ABDOMEN: Soft, nontender. EXTREMITIES: Normal appearing lower extremities without edema. There is some mild chest wall tender ness with palpation that is not so well localized. ASSESSMENT: 1. Chest pain that appears to be more musculoskeletal instead of cardiac. 2. Status post recent cholecystectomy. 3. History of colon cancer. 4. Joint pain/arthritis predating this hospitalization. 5. Report of GI bleeding with ibuprofen, but not recently. 6. History of hypothyroidism. 7. Report of hypertension. PLAN: 1. Increase dose of steroid use. 2. Ambulation. 3. Await echocardiogram with Doppler report.
--- NOTE | 2017-07-30 17:07 | PDOC.CTH ---
Cardiology Progress Note - Subjective No new issues. She continues to have chest pain on her left side when moving around and better by getting on her left side. - Objective Vital Signs Temp Pulse Resp BP BP Pulse Ox 07/30/17 11:36 98.1 F 63 16 144/66 H 98 07/30/17 08:00 98.3 F 58 L 18 07/30/17 07:45 58 L 18 129/60 98 Admit Weight 103 lb Weight 103 lb 6.4 oz 07/29/17 07/30/17 07/31/17 06:59 06:59 06:59 Intake Total 290 Output Total 700 Balance -410 - Physical Examination General/Neuro: alert & oriented x3, NAD Neck: no JVD present Lungs: CTA, unlabored respirations Heart: RRR Abdomen: NT/ND Extremities: + edema B (none) - Telemetry Telemetry Rhythm: NSR - Labs Result Diagrams: 07/29/17 07:09 07/29/17 07:09 Troponin/CKMB CK-MB (CK-2) 2.2 ng/mL (0-6.6) 07/29/17 07:09 Troponin I 0.010 ng/mL (< 0.028) 07/29/17 14:21 - Assessment/Plan 1. Chest pain, likely chest wall pain. PLAN: - Negative stress test Jul 04. - Atypical symptoms, most likely musculoskeletal. - No new recs.
[2017-07-30] MEDS: Atenolol 50 MG TAB PO SCH (20:32)
[2017-07-31] MEDS: Levothyroxine Sodium 75 MCG TAB PO SCH (05:16)
[2017-07-31] MEDS: Ondansetron HCl/PF 4 MG/2 ML Vial IVP PRN ×2 (06:03→11:32)
[2017-07-31] MEDS: traMADol HCl 50 MG TAB PO PRN ×2 (06:36→19:26)
[2017-07-31] MEDS ORDERED: Acetaminophen 500 MG TAB PO PRN (07:24)
[2017-07-31] MEDS ORDERED: traMADol HCl 50 MG TAB PO PRN (07:24)
[2017-07-31] MEDS: Fish Oil 1,000 MG CAP PO SCH (08:52)
[2017-07-31] MEDS: Calcium Carbonate + Vit D 1 TAB PO SCH (08:52)
[2017-07-31 08:57] LABS: ALT (SGPT) 169 U/L (8-55); AST (SGOT) 85 U/L (5-34); Alkaline Phosphatase 336 U/L (40-150); Anion Gap 14 mmol/L (10-20); BUN (Urea Nitrogen) 31 mg/dL (9.8-20.1); Bilirubin, Total 1.1 mg/dL (0.2-1.2); Calc. Creatinine Clearance 38 mL/min (70-130); Calcium 8.9 mg/dL (7.8-10.44); Carbon Dioxide 23 mmol/L (23-31); Chloride 105 mmol/L (98-107); Estimated GFR-MDRD 58; Globulin 3.1 g/dL (2.4-3.5); Lipase 9 U/L (8-78); Protein, Total 6.9 g/dL (6.0-8.3)
[2017-07-31] MEDS ORDERED: Alendronate Sodium 70 mg Tablet PO SCH (09:00)
[2017-07-31] MEDS ORDERED: Levothyroxine Sodium 75 MCG TAB PO SCH (09:00)
[2017-07-31] MEDS ORDERED: Sucralfate 1 GM/10 ML UDCUP PO SCH (09:00)
[2017-07-31] MEDS ORDERED: Non-Formulary Item 1 EACH (Calcium Carbonate/Vitamin D3 [Calcium 600 + Vitamin D] 1 TABLE PO SCH (09:00)
[2017-07-31] MEDS ORDERED: Fish Oil 1,000 MG CAP PO SCH (09:00)
[2017-07-31] MEDS ORDERED: Atenolol 50 MG TAB PO SCH (09:00)
--- NOTE | 2017-07-31 10:00 | PRG ---
DATE OF SERVICE: 07/31/2017 SUBJECTIVE: Ms. Meadows continues to have some pain in her chest, particularly when she moves from s brianna to side or rolls over in bed. She further has had some nausea and some emesis with this occurrin g when she attempts to eat food. PHYSICAL EXAMINATION: VITAL SIGNS: Blood pressure 110/54, pulse 57, temperature 98.0 and 98% O2, weight 102 pounds, input 804 mL, output 450 mL, balance positive 354. GENERAL: Alert, pleasant, in no acute distress, lying in the supine position in her hospital bed. S he is able to speak coherently and engaging in normal conversation. Her breathing is nonlabored. LUNGS: Clear to auscultation. CARDIAC: Regular rate and rhythm without murmur. ABDOMEN: Soft, nontender. SKIN: With normal texture and appearance. ASSESSMENT: 1. Apparent musculoskeletal/chest wall pain. Recent noninvasive cardiac stress testing which reveal ed no ischemia. Echocardiogram revealed 60%-65% ejection fraction with some diastolic dysfunction. No appreciable valvular heart disease. 2. Nausea with some emesis and do not suspect gastroenteritis at this time. My concern is for some medication-induced nausea and she may benefit from discontinuing some medication, continuing an antie metic and adding proton pump inhibitor. PLAN: 1. Delete Meloxicam and prednisone from her medication regimen. 2. Continue tramadol for pain. 2. Add a proton pump inhibitor.
[2017-07-31] MEDS: Sucralfate 1 GM/10 ML UDCUP PO SCH ×2 (11:32→16:18)
[2017-07-31] MEDS ORDERED: Ondansetron HCl/PF 4 MG/2 ML Vial IVP PRN (15:59)
[2017-07-31] MEDS ORDERED: Ondansetron ODT 4 MG TAB SL PRN (15:59)
[2017-07-31] MEDS: Atenolol 50 MG TAB PO SCH (19:25)
[2017-07-31] MEDS ORDERED: ALPRAZolam 0.25 MG TAB PO PRN (21:28)
[2017-07-31] MEDS ORDERED: Diltiazem 125 MG in Sodium Chloride 0.9% 100 ML IVPB SCH (21:30)
[2017-08-01] MEDS: Levothyroxine Sodium 75 MCG TAB PO SCH (05:15)
[2017-08-01] MEDS: Calcium Carbonate + Vit D 1 TAB PO SCH (09:13)
[2017-08-01] MEDS: Sucralfate 1 GM/10 ML UDCUP PO SCH ×2 (09:13→12:15)
[2017-08-01] MEDS: Fish Oil 1,000 MG CAP PO SCH ×2 (09:13→09:14)
[2017-08-01 09:20] VITALS: TEMP 97.5
--- NOTE | 2017-08-01 14:37 | DIS ---
Ms. Meadows is doing better today. She has had no further vomiting. She feels like she can go home. She has had no further chest pain. PHYSICAL EXAMINATION: VITAL SIGNS: Temperature 97.5, BP 109/81. LUNGS: Clear. HEART: Reveals no murmur. ABDOMEN: Soft, nontender. Bowel sounds present. IMPRESSION: Abdominal pain, chest pain, appears to be related to recurrent gastritis. PLAN: She will be discharged home today and follow up with me in 3 days.
[2017-08-01 14:39] VITALS: BP 131/82
--- NOTE | 2017-08-01 15:05 | PQF ---
CLINICAL DOCUMENTATION IMPROVEMENT CLARIFICATION FORM: ICD-10 Updated PLEASE DO AN ADDENDUM TO THE PROGRESS NOTE WITH ANY DOCUMENTATION UPDATES OR ADDITIONS AND CARRY THROUGH TO DC SUMMARY. THANK YOU. Date: 08/01/17 ATTN: Dr. Michael Cui Please exercise your independent, professional judgment in responding to the clarification form. 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 BMI 16.7 W/ A 6% WT LOSS IN LESS THAN 1 MONTH, GENERALIZED MUSCLE WASTING OBSERVED W/ SEVERE WASTING TO THE SHOULDERS & CHEST & LITTLE VISCERAL FAT. RISKS: H&P: HX OF COLON CANCER, S/P MULTIPLE SUBTOTAL COLECTOMIES W/ AN EVENTUAL ENTIRE COLECTOMY. 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 Thank you, Jaylin (This form is maintained as a part of the permanent medical record) 2015 [employer]. All Rights Reserved Jaylin Blackmon RN, BSN [email or web address] Office: [phone] [facility]
--- NOTE | 2017-08-02 00:51 | DIS ---
DATE OF ADMISSION: 07/29/2017 DATE OF DISCHARGE: 07/31/2017 DISCHARGE DIAGNOSES: 1. Abdominal epigastric pain, chest pain. 2. Probable gastritis. 3. Status post recent cholecystectomy. ADMITTING PHYSICIAN: Dr. Michael Cui. CONSULTING PHYSICIAN: Dr. Garcia. HOSPITAL SUMMARY: A 77-year-old female who had recently been admitted here for chest pain, had stres s test done approximately 3 weeks ago, which was normal. She underwent cholecystectomy as a result o f her chest pain from 3 weeks ago. She presented to the emergency room complaining of substernal pallavi st pain and discomfort. She was readmitted and Cardiology consult was obtained, this did not represe nt further cardiac disease. She continued to have episodes of vomiting. She was subsequently placed on pantoprazole. Her vomiting was stopped. She was able to be discharged home on 08/01/2017 having tolerating regular diet. DISCHARGE MEDICATIONS: Include pantoprazole 40 mg daily, Zofran 4 mg as needed for nausea and vomiti ng. She will be maintained on her home doses of acetaminophen, Xanax 0.25 mg every six hours, atenol ol 50 mg daily, calcium 1 tab daily, diltiazem 125 mg daily, tramadol 50 mg as needed for pain, zolpi dem 5 mg as needed for sleep. DISCHARGE PLAN: She will follow up with me in 3 days.
== END 2017-08-01 15:26 | disposition home or self-care (01) | DRG 392 ==
LOC: ERS 06:56 → 2SW 11:06 → OBSVTOIN 11:06 → 2NO 07-31 11:42 → 2SW 07-31 11:50 → 2NO 07-31 12:16
PROVIDERS: ADMIT Family Medicine; ATTEND Family Medicine
DX: K29.70 Gastritis, unspecified, without bleeding (principal); I10 Essential (primary) hypertension; M19.90 Unspecified osteoarthritis, unspecified site; E03.9 Hypothyroidism, unspecified; Z85.038 Personal history of other malignant neoplasm of large intestine; Z88.0 Allergy status to penicillin; Z88.8 Allergy status to other drugs, medicaments and biological substances; Z91.09 Other allergy status, other than to drugs and biological substances; Z92.3 Personal history of irradiation
CPT/HCPCS: 36415; 71010; 76705; 80053; 82553; 83690; 84484; 85025; 93005; 93306; 96374; 96375; A4216; J2270; J2405; J7050; J7506; Q0162

== ENCOUNTER 2018-02-03 09:18 | Emergency (ER) | payer MEDICARE ==
[2018-02-03 09:54] LABS: #Basophils 0.1 thou/uL (0.0-0.2); #Eosinphils 0.1 thou/uL (0.0-0.7); #Lymphocytes 1.4 thou/uL (1.20-3.40); #Monocytes 0.4 thou/uL (0.11-0.59); #Neutrophils 2.6 thou/uL (1.40-6.50); %Basophils 1.4 % (0.0-1.0); %Eosinophils 1.6 % (0.0-10.0); %Lymphocytes 30.4 % (21.0-51.0); %Neutrophils 58.6 % (42.0-75.0); Hemoglobin 15.2 g/dL (12.0-16.0); Mean Corpuscular Hemoglobin 32.9 pg (27.0-31.0); Mean Corpuscular Volume 96.7 fl (81.0-99.0); Platelet Count 129 thou/uL (130-400); Red Blood Cell (RBC) Count 4.62 mill/uL (4.20-5.40); White Blood Cell (WBC) Count 4.5 thou/uL (4.8-10.8)
[2018-02-03 10:14] LABS: ALT (SGPT) 19 U/L (8-55); AST (SGOT) 24 U/L (5-34); Albumin 4.3 g/dL (3.4-4.8); Alkaline Phosphatase 88 U/L (40-150); Anion Gap 14 mmol/L (10-20); BUN (Urea Nitrogen) 15 mg/dL (9.8-20.1); Bilirubin, Total 1.1 mg/dL (0.2-1.2); Calc. Creatinine Clearance 0 mL/min (70-130); Calcium 10.1 mg/dL (7.8-10.44); Carbon Dioxide 24 mmol/L (23-31); Chloride 106 mmol/L (98-107); Estimated GFR-MDRD 69; Globulin 3.3 g/dL (2.4-3.5); Glucose 92 mg/dL (83-110); Potassium 4.1 mmol/L (3.5-5.1); Protein, Total 7.6 g/dL (6.0-8.3); Sodium 140 mmol/L (136-145)
[2018-02-03] MEDS ORDERED: Morphine 10 MG/ML VIAL ONE (10:49)
[2018-02-03] MEDS ORDERED: Dexamethasone 10 MG/ML VIAL ONE (10:49)
[2018-02-03] MEDS ORDERED: Ondansetron ODT 4 MG TAB ONE (10:56)
[2018-02-03] MEDS ORDERED: Dexamethasone 4 mg/ml Vial ONE (11:00)
--- NOTE | 2018-02-03 11:24 | CT ---
CT BRAIN WITHOUT CONTRAST: Date: 02/03/18 HISTORY: Right-sided facial pain. Headache. Pain initially started in forehead and gradually around the eye. FINDINGS: There is ventricular sulcal prominence due to cortical atrophy. There are changes of mild chronic sma ll vessel ischemic disease in the periventricular white matter. The ventricular size is appropriate a nd the basilar cisterns are patent. No evidence of acute infarct, hemorrhage, midline shift, or abnor mal extra-axial fluid collections are seen. The bony calvarium is intact. The visualized paranasal si nuses and mastoid air cells are well aerated. IMPRESSION: No CT evidence of acute intracranial process. POS: [facility]
== END 2018-02-03 11:40 | disposition home or self-care (01) ==
LOC: ERS 09:18
DX: R51 Headache (principal); E03.9 Hypothyroidism, unspecified; Z85.038 Personal history of other malignant neoplasm of large intestine; Z85.41 Personal history of malignant neoplasm of cervix uteri
CPT/HCPCS: 70450; 80053; 85025; 85652; 86140; 93005; 96374; 96375; J1100; J2270; Q0162

== ENCOUNTER 2018-05-03 08:19 | Outpatient (CLI) | payer MEDICARE | END 2018-05-03 08:20 | disposition home or self-care (01) | LOC: BICMRI 08:19 | PROVIDERS: ATTEND Psychiatry & Neurology Neurology | DX: G50.0 Trigeminal neuralgia (principal); G93.89 Other specified disorders of brain | CPT/HCPCS: 70553; 82565 ==

== ENCOUNTER 2018-11-30 12:52 | Outpatient (CLI) | payer MEDICARE ==
--- NOTE | 2018-11-30 14:55 | MRI ---
MRI OF RIGHT SHOULDER PERFORMED WITHOUT CONTRAST ENHANCEMENT: History: Right shoulder pain, progressively getting worse. FINDINGS: There is some moderate arthrosis of the AC joint. The supraspinatus tendon shows a small focal 5-6 mm low grade undersurface tear of the far anterior a spect of the tendon. The area only measures approximately 5 mm. The infraspinatus tendon appears inta ct. Subscapularis muscle and tendon are normal in appearance. Biceps tendon is normal in position within the bicipital groove. Intraarticular portion of the biceps tendon appears unremarkable. The bicipital labral complex is unremarkable. There is some joint effusion present and some fluid within the axillary pouch. There is some synoviti s type changes and what appear to be some small articular bodies. There are arthritic changes of the glenohumeral joint space. The anterior band and inferior glenohumeral ligament appears slightly thick ened. The axillary pouch region is somewhat indistinct. It may just be related to synovitis change. T he rotator cuff interval does not show any edema and no fluid within the subacromial/subdeltoid bursa . The inferior labrum is somewhat irregular in appearance, probably just related to some degenerative c hange. Small subchondral cyst is seen in the anterior inferior glenoid measuring 4-5 mm. IMPRESSION: 1. Low grade small far anterior supraspinatus tendon tear. No evidence of any significant rotator cuf f atrophy. 2. Moderate arthritic change of the glenohumeral joint space with areas of fairly severe articular ca rtilage loss involving the humeral head and also changes of the glenoid. In addition, there is mild j oint effusion present and synovitis changes and what appear to be some small articular bodies in the axillary pouch region. POS: [facility]
== END 2018-11-30 12:53 | disposition home or self-care (01) ==
LOC: BICMRI 12:52
PROVIDERS: ATTEND Orthopaedic Surgery
DX: M75.101 Unspecified rotator cuff tear or rupture of right shoulder, not specified as traumatic (principal); M25.511 Pain in right shoulder; M19.011 Primary osteoarthritis, right shoulder; M25.411 Effusion, right shoulder

== ENCOUNTER 2019-06-20 09:07 | Outpatient (CLI) | payer MEDICARE ==
[2019-06-20 10:23] LABS: #Basophils 0.1 thou/uL (0.0-0.2); #Eosinphils 0.1 thou/uL (0.0-0.7); #Lymphocytes 1.5 thou/uL (1.20-3.40); #Monocytes 0.3 thou/uL (0.11-0.59); #Neutrophils 2.5 thou/uL (1.40-6.50); %Basophils 1.2 % (0.0-1.0); %Eosinophils 2.6 % (0.0-10.0); %Lymphocytes 34.3 % (21.0-51.0); %Monocytes 6.5 % (0.0-10.0); %Neutrophils 55.4 % (42.0-75.0); Hemoglobin 15.5 g/dL (12.0-16.0); Mean Corpuscular HGB CONC 33.2 g/dL (32.0-36.0); Mean Corpuscular Hemoglobin 32.5 pg (27.0-31.0); Mean Platelet Volume 7.9 fL (7.4-10.4); Platelet Count 149 thou/uL (130-400); RBC Distribution Width 11.7 % (11.5-14.5); Red Blood Cell (RBC) Count 4.77 mill/uL (4.20-5.40); White Blood Cell (WBC) Count 4.5 thou/uL (4.8-10.8)
[2019-06-20 10:27] LABS: Bacteria/HPF 4+ HPF (None Seen); Bilirubin Negative (Negative); Blood, Urine Negative (Negative); Clarity Turbid (Clear); Glucose, Urine (Dipstick) Normal (Negative); Leukocyte Negative Leu/uL (Negative); Nitrite 2+ (Negative); Protein, Urine (Dipstick) Negative (Neg-Trace); Squamous Epithelial 0-3 HPF (0-3); Urobilinogen Normal mg/dL (Less than 2)
[2019-06-20 10:30] LABS: INR-International Normal Ratio 0.9; Prothrombin Time 12.2 SEC (12.0-14.7)
== END 2019-06-20 09:08 | disposition home or self-care (01) ==
LOC: LABBT 09:07
PROVIDERS: ATTEND Orthopaedic Surgery
DX: Z01.812 Encounter for preprocedural laboratory examination (principal); M19.011 Primary osteoarthritis, right shoulder
CPT/HCPCS: 81001; 85025; 85610; 87081; 93005; 93010

== ENCOUNTER 2019-06-20 09:15 | Inpatient (IN) | payer MEDICARE ==
[2019-06-21] MEDS ORDERED: Sodium Chloride 0.9% 100 ML ONE (06:01)
[2019-06-21] MEDS ORDERED: Tranexamic Acid 1,000 MG/10 ML VIAL ONE (06:01)
[2019-06-21] MEDS ORDERED: Clindamycin/D5W 600 mg/50 ml Premix Bag ONE (06:01)
[2019-06-21] MEDS ORDERED: Fentanyl 100 MCG/2 ML VIAL ONE ×3 (06:01→11:17)
[2019-06-21] MEDS ORDERED: Levofloxacin 500 mg/D5W 100 ml Premix Bag ONE (06:01)
[2019-06-21] MEDS ORDERED: Midazolam HCl 2 mg/2 ml Vial ONE (06:28)
[2019-06-21] MEDS ORDERED: Ondansetron PF 4 MG/2 ML Vial ONE (06:36)
[2019-06-21] MEDS ORDERED: Ondansetron PF 4 MG/2 ML Vial IVP PRN ×2 (07:06→14:02)
[2019-06-21] MEDS ORDERED: traMADol HCl 50 MG TAB PO PRN ×2 (07:06)
[2019-06-21] MEDS ORDERED: Zolpidem Tartrate 5 MG TAB PO PRN ×2 (07:06→14:02)
[2019-06-21] MEDS ORDERED: Ropivacaine 0.2% 550 ML 550 ML NERVE BLCK SCH (07:06)
[2019-06-21] MEDS ORDERED: Fentanyl 100 MCG/2 ML VIAL IV PRN (07:07)
[2019-06-21] MEDS ORDERED: HYDROcodone/Acetaminophen 7.5/325 mg Tablet PO PRN ×2 (07:07→07:08)
[2019-06-21] MEDS ORDERED: PACU-Morphine 4MG/ML VIAL SLOW IVP PRN (09:41)
[2019-06-21] MEDS ORDERED: Promethazine HCl 25 MG/ML VIAL SLOW IVP PRN (09:41)
[2019-06-21] MEDS ORDERED: HYDROmorphone 2 MG/ML VIAL SLOW IVP PRN (09:41)
[2019-06-21] MEDS ORDERED: Meperidine HCl/PF 25 MG/ML VIAL SLOW IVP PRN (09:41)
[2019-06-21] MEDS ORDERED: Morphine Sulfate 2 MG/ML SYRINGE SLOW IVP PRN (09:41)
[2019-06-21] MEDS ORDERED: Promethazine HCl 25 MG/ML VIAL IM PRN (09:41)
[2019-06-21] MEDS ORDERED: Ondansetron HCl/PF 4 MG/2 ML Vial IVP PRN (09:41)
--- NOTE | 2019-06-21 12:06 | HP ---
HISTORY OF PRESENT ILLNESS: Ms. Meadows is a 79-year-old female presents with right shoulder pain rated as 7/10, ongoing for greater than 6 months. The patient has pain with range of motion. She has no radiating pain. No pre-surgery injury. She has catching of her shoulder with range of motion. The pain can be severe at times. She has undergone previous intra-articular injections and given her relief, but not relieved her symptoms. PAST MEDICAL HISTORY: Includes colon cancer, hysterectomy, history of osteoporosis, hypothyroidism, and pain. PAST SURGICAL HISTORY: Includes appendectomy, cone for cervical cancer, mass and colostomy, subtotal colectomy, kidney stent, lap karlie. MEDICATIONS: Include: 1. Alendronate. 2. Calcium. 3. Diltiazem. 4. Gabapentin. 5. Levothyroxine. 6. [place]-3. 7. Tramadol. ALLERGIES: INCLUDE NSAIDS, PENICILLIN, IODINE. SOCIAL HISTORY: The patient is . Nonsmoker. No alcohol or drug use. REVIEW OF SYSTEMS: Noncontributory. PHYSICAL EXAMINATION: GENERAL: Alert and oriented female, in no acute distress, resting comfortably in bed. EXTREMITIES: Right upper extremity, the patient has only about 70 degrees of forward flexion and painful external rotation. Supraspinatus strength is about 4/5. The patient has positive Driscoll and Kip's. Neurovascularly intact distally. 2+ radial pulse. LABORATORY DATA: The patient had MRI of her right shoulder, which showed full-thickness cartilage loss of the humerus and glenoid, partial-thickness rotator cuff tear, supraspinatus. ASSESSMENT AND PLAN: I discussed with the patient and family long-term options would be a total shoulder arthroplasty. I discussed the risks and benefits of surgery to include pain, scar, bleeding, infection, damage to vital structures, decreased range of motion and strength, need for further surgeries, failure of procedure, continued pain despite surgical intervention, damage, loss of life or limb. The patient and family understood the risks and benefits of the procedure and elected to proceed. Taken back to the operative suite for right total shoulder arthroplasty with biceps tenodesis. I discussed if the tear had progressed or was worse, then possibly may have to convert to right reverse shoulder arthroplasty. Job ID: [id number]
[2019-06-21] MEDS ORDERED: diphenhydrAMINE 50 MG CAP PO PRN (14:02)
[2019-06-21] MEDS ORDERED: Methocarbamol 500 MG TAB PO PRN (14:02)
[2019-06-21] MEDS ORDERED: Bisacodyl 10 MG SUPP PR PRN (14:02)
[2019-06-21] MEDS ORDERED: Ondansetron ODT 4 MG TAB PO PRN (14:02)
[2019-06-21] MEDS ORDERED: Methocarbamol 1 GM/10 ML VIAL SLOW IVP PRN (14:02)
[2019-06-21] MEDS ORDERED: HYDROcodone/Acetaminophen 10/325 mg Tablet PO PRN (14:02)
[2019-06-21] MEDS ORDERED: Famotidine 20 MG TAB PO SCH (14:30)
[2019-06-21] MEDS: Ketorolac Tromethamine 30 MG/ML VIAL IVP SCH ×3 (14:47→23:42)
[2019-06-21] MEDS: Sodium Chloride 0.9% 1,000 ML IV SCH (14:49)
[2019-06-21] MEDS: Clindamycin/D5W 900 MG in Premix Bag 1 BAG IVPB SCH ×2 (14:50→20:51)
[2019-06-21] MEDS: Promethazine HCl 25 MG/ML VIAL IM PRN ×2 (15:54→19:23)
[2019-06-21] MEDS: Famotidine 20 MG TAB PO SCH (20:51)
[2019-06-21] MEDS: HYDROcodone/Acetaminophen 10/325 mg Tablet PO PRN (22:10)
[2019-06-22] MEDS: Sodium Chloride 0.9% 1,000 ML IV SCH ×2 (05:40→22:26)
[2019-06-22] MEDS: Ketorolac Tromethamine 30 MG/ML VIAL IVP SCH ×3 (05:41→17:47)
[2019-06-22] MEDS ORDERED: Vancomycin HCl 1 GM in Premix Bag 1 BAG IVPB SCH (06:00)
[2019-06-22] MEDS: HYDROcodone/Acetaminophen 10/325 mg Tablet PO PRN (06:03)
[2019-06-22] MEDS: Famotidine 20 MG TAB PO SCH ×2 (09:27→20:32)
[2019-06-22] MEDS: traMADol HCl 50 MG TAB PO PRN ×3 (09:30→20:32)
--- NOTE | 2019-06-22 10:21 | OP ---
DATE OF PROCEDURE: 06/21/2019 PREOPERATIVE DIAGNOSES: 1. Right shoulder osteoarthritis. 2. Biceps tendinopathy. POSTOPERATIVE DIAGNOSES: 1. Right shoulder osteoarthritis. 2. Biceps tendinopathy. PROCEDURES PERFORMED: 1. Right total shoulder arthroplasty. 2. Biceps tenodesis. MAINTENANCE DIRECTOR: Adair Saldivar PA-C ANESTHESIA: The patient received a general endotracheal intubation with interscalene block. ESTIMATED BLOOD LOSS: 250 mL. TOURNIQUET TIME: None. IMPLANTS: Tornier PerFORM small 40 CortiLoc Flex 3B stem and a 43 x 16 mm low offset head. ANTIBIOTICS: Clindamycin 600, Levaquin 500, vancomycin 1 g, and TXA 1 g. COMPLICATIONS: None. HISTORY OF PRESENT ILLNESS: Ms. Meadows is a 79-year-old female, who presents with right shoulder pain, that has been present for over greater than 6 months. She has grinding and decreased range of motion and function. I discussed with the patient risks and benefits of right total shoulder arthroplasty to include pain, scar, bleeding, infection, damage to vital structures, decreased range of motion and strength, need for further surgeries, failure of procedure, continued pain despite surgery mentioned, infection, loss of life of limb, blood clots. The patient understood the risks and benefits and elected to proceed. DESCRIPTION OF PROCEDURE: Time-out was performed designating the patient's right upper extremity as the operative site based on site, consents, and marking. After the patient received her preoperative antibiotics with clindamycin, Levaquin, vancomycin, and TXA. The patient had a deltopectoral incision made down through skin. We came through the deltopectoral plane, found the conjoined tendon, found the subscap, came through the biceps interval. We did a small LTO with just portions for sharply fibers with insertion of tuberosity. We then took down the capsule and found the patient's humeral head, did a complete release, cut based off the articular cartilage, used our opening awl 1 cm posterior and medial, placed our guide in 30 degrees external rotation and broached up to put our sequential awls until we came up and we took a cut in 30 degrees action. We then broached up to size 1, placed to drain cover over the humerus and did 360 deg release of glenoid, exposed the glenoid. We placed our center position for our small implant. We drilled. We found the position. We felt like we liked. We reamed with sequence of reamer, placed our CortiLoc, cemented superiorly and drilled all 3 holes. Trial now had a good overall fit. We removed the small cemented three holes and pressed it into position, felt like that good overall alignment and position of the glenoid. We then cemented in place, moved back to humerus, taking pressure off the scar. We went up to size up to a size 3, fit had overall good fit. After 18 minutes, we reduced, the patient had 40 degrees posterior translation, full overhead elevation, internal rotation. We removed this implant. We placed 3 sutures fiber LTO was placed through the biceps tendon groove and then 3 off the medial aspect and passed those in a whipstitch through the remainder of the cuff, over sewed them superior and inferior. We then used #2 to close the rotator interval. We tenodesed the biceps into the flap underneath #2 as well as with 0 Vicryl. We closed over the top with a #5 Ethibond and we had passed through the cuff to double row to a lateral stitch. We cut that. We washed, closed up the deltoid with 0, 2-0, and benjie. The patient will be admitted with begin passive range of motion and will follow up with me in 2 weeks upon discharge tomorrow. Job ID: [id number] [facility]
[2019-06-22 14:49] VITALS: BMI 17.7
[2019-06-22] MEDS ORDERED: Prevnar 13-Val Conj/PF 0.5 ML SYRINGE IM ONE (15:30)
[2019-06-22] MEDS: Acetaminophen 325 MG TAB PO PRN ×2 (15:49→20:31)
[2019-06-22] MEDS: Nitrofurantoin Monohyd/M-Cryst 100 MG CAP PO SCH (20:32)
[2019-06-23] MEDS: Ketorolac Tromethamine 30 MG/ML VIAL IVP SCH ×2 (01:06→05:13)
[2019-06-23] MEDS: traMADol HCl 50 MG TAB PO PRN ×3 (07:09→20:16)
[2019-06-23] MEDS: Acetaminophen 325 MG TAB PO PRN ×3 (07:09→20:16)
[2019-06-23] MEDS: Famotidine 20 MG TAB PO SCH ×2 (07:55→20:13)
[2019-06-23] MEDS: Nitrofurantoin Monohyd/M-Cryst 100 MG CAP PO SCH ×2 (07:56→20:13)
[2019-06-23] MEDS: Sodium Chloride 0.9% 1,000 ML IV SCH (09:01)
[2019-06-24] MEDS: Sodium Chloride 0.9% 1,000 ML IV SCH ×2 (03:39→08:56)
[2019-06-24] MEDS: Acetaminophen 325 MG TAB PO PRN (08:12)
[2019-06-24] MEDS: traMADol HCl 50 MG TAB PO PRN (08:12)
[2019-06-24] MEDS: Nitrofurantoin Monohyd/M-Cryst 100 MG CAP PO SCH (08:12)
[2019-06-24] MEDS: Famotidine 20 MG TAB PO SCH (08:12)
--- NOTE | 2019-06-24 11:08 | PRG ---
DATE OF SERVICE: 06/24/2019 SUBJECTIVE: Audrey is a 79-year-old female, postop day 3, from a right total shoulder arthroplasty. She feels a little better today. She did walk 600 feet yesterday twice. Therapy is little more comfortable with her today. No stumbling was reported by staff. OBJECTIVE: She is alert and oriented to person, place, time, and situation, responsive, appropriate. Grossly nonfocal. Incision is clean. No strike through. Her block will be discontinued today. No drainage is noted. IMPRESSION: Postop day #3, right total shoulder arthroplasty in a 79-year-old female. PLAN: Therapy will visit with the patient today and we will give consideration to a home discharge if she does well with independence and ADLs. If not, then we will consider a skilled stay. Job ID: [id number]
[2019-06-24 11:24] VITALS: BP 152/87; TEMP 97.1
--- NOTE | 2019-06-25 14:15 | DIS ---
DATE OF ADMISSION: 06/21/2019 DATE OF DISCHARGE: 06/24/2019 This is Tesfaye Jansen PA-C dictating a report for Niraj Zuniga MD. PREOPERATIVE DIAGNOSES: Right shoulder osteoarthritis/degenerative joint disease. POSTOPERATIVE DIAGNOSIS: Right shoulder osteoarthritis/degenerative joint disease. PROCEDURE PERFORMED: The patient underwent a right total shoulder replacement. HOSPITAL COURSE: Hospital stay was unremarkable. She was admitted to [place] [id number], where she worked with physical therapy, occupational therapy, and staff and did quite well. By postop day 3, she was ready to discharge home. DISCHARGE CONDITION: Good/stable. DISPOSITION: Home with family. FOLLOWUP: Follow up would be in 10 to 14 days or sooner if there are problems and/or concerns. DISCHARGE MEDICATIONS: Given with usage instructions. Job ID: [id number]
== END 2019-06-24 12:25 | disposition home or self-care (01) | DRG 483 ==
LOC: SURG A 06-21 05:39 → SURG B 06-21 12:35
PROVIDERS: ADMIT Orthopaedic Surgery; ATTEND Orthopaedic Surgery
PROC: 0RRJ0JZ Replacement of Right Shoulder Joint with Synthetic Substitute, Open Approach (ICD-10-PCS; principal; 2019-06-21)
PROC: 0LS30ZZ Reposition Right Upper Arm Tendon, Open Approach (ICD-10-PCS; 2019-06-21)
DX: M19.011 Primary osteoarthritis, right shoulder (principal); M75.21 Bicipital tendinitis, right shoulder; Z90.49 Acquired absence of other specified parts of digestive tract; Z98.42 Cataract extraction status, left eye; Z98.41 Cataract extraction status, right eye; Z88.0 Allergy status to penicillin; Z88.8 Allergy status to other drugs, medicaments and biological substances; Z91.041 Radiographic dye allergy status; Z85.038 Personal history of other malignant neoplasm of large intestine; E03.9 Hypothyroidism, unspecified
CPT/HCPCS: 81001; 85025; 85610; 87081; 93005; 93010; A4306; C1713; J1885; J1956; J2250; J2405; J2550; J2795; J3010; J3370; J3490

== ENCOUNTER 2019-07-02 13:34 | Outpatient (CLI) | payer MEDICARE ==
--- NOTE | 2019-07-02 14:54 | BD ---
DEXA BONE DENSITY EXAM: HISTORY: A 79-year-old postmenopausal female for screening. COMPARISON: 05/06/2016 FINDINGS: LUMBAR SPINE BMD (g/cm2) T-SCORE L1 0.863 -1.2 L2 1.097 0.6 L3 1.120 0.3 L4 1.097 0.3 TOTAL L1-L4 1.047 0.0 LEFT FEMORAL NECK 0.739 -1.0 TOTAL PROXIMAL LEFT FEMUR 0.971 0.2 IMPRESSION: Normal bone mineral density. When compared to the prior examination the bone density in the hip has increased approximately 20% and the bone density in the spine has not changed significantly. POS: [facility]
== END 2019-07-02 13:35 | disposition home or self-care (01) ==
LOC: BICMAMMO 13:34
PROVIDERS: ATTEND Family Medicine
DX: M81.0 Age-related osteoporosis without current pathological fracture (principal); M85.89 Other specified disorders of bone density and structure, multiple sites
CPT/HCPCS: 77080

== ENCOUNTER 2020-07-07 06:44 | Outpatient (CLI) | payer MEDICARE, OTHER ==
[2020-07-07 10:38] LABS: INR-International Normal Ratio 0.9; PTT 21.1 sec (22.0-33.0); Prothrombin Time 9.9 sec (9.5-12.1)
[2020-07-07 10:39] LABS: #Eosinphils 0.1 10x3/uL (0.0-0.5); #Monocytes 0.4 10x3/uL (0.0-1.1); #Neutrophils 3.2 10x3/uL (1.5-8.4); %Basophils 0.8 % (0.0-2.0); %Eosinophils 2.2 % (0.0-6.0); %Lymphocytes 26.1 % (18.0-47.0); %Monocytes 7.9 % (0.0-10.0); %Neutrophils 62.6 % (40.0-75.0); Mean Corpuscular HGB CONC 32.8 G/DL (32.0-36.0); Mean Corpuscular Hemoglobin 32.2 PG (27.0-33.0); Mean Corpuscular Volume 98.1 fl (80.0-100.0); Mean Platelet Volume 11.2 fl (7.4-10.4); Platelet Count 126 10x3/uL (130-400); RBC Distribution Width 11.9 % (11.5-14.5); Red Blood Cell (RBC) Count 4.66 10x6/uL (3.90-5.20); White Blood Cell (WBC) Count 5.1 10x3/uL (4.5-11.0)
[2020-07-07 11:35] LABS: Anion Gap 17 mmol/L (10-20); BUN (Urea Nitrogen) 16 mg/dL (9.8-20.1); Calc. Creatinine Clearance 0 mL/min (70-130); Calcium 9.7 mg/dL (7.8-10.44); Carbon Dioxide 25 mmol/L (23-31); Chloride 104 mmol/L (98-107); Estimated GFR-MDRD 74; Glucose 97 mg/dL (83-110); Potassium 4.5 mmol/L (3.5-5.1); Sodium 141 mmol/L (136-145)
--- NOTE | 2020-07-07 21:06 | EKG ---
Test Reason : PREOP Blood Pressure : / mmHG Vent. Rate : 070 BPM Atrial Rate : 070 BPM P-R Int : 138 ms QRS Dur : 070 ms QT Int : 402 ms P-R-T Axes : 085 079 081 degrees QTc Int : 434 ms Normal sinus rhythm Normal ECG No previous ECGs available Confirmed by Esme MARTIN ([id number]) on 07/07/2020 9:05:46 PM Referred By: Rosanne DUNN Confirmed By:Esme MARTIN
[2020-07-08 12:09] LABS: SARS-CoV-2 MS2 Positive; SARS-CoV-2 N Gene Negative; SARS-CoV-2 S Gene Negative; SARS-CoV-2 by NAA Not Detected (NotDetected); SARS-CoV-2 orf1ab Negative
== END 2020-07-07 06:45 | disposition home or self-care (01) ==
LOC: LABBT 06:44
PROVIDERS: ATTEND Orthopaedic Surgery
DX: Z01.818 Encounter for other preprocedural examination (principal); G89.4 Chronic pain syndrome; M79.601 Pain in right arm
CPT/HCPCS: 80048; 85025; 85610; 85730; 93005; U0003; 87635; 93010

== ENCOUNTER 2020-07-07 09:45 | Inpatient (IN) | payer MEDICARE ==
[2020-07-10] MEDS ORDERED: Tranexamic Acid 1,000 MG/10 ML VIAL ONE (07:40)
[2020-07-10] MEDS ORDERED: Vancomycin 1 GM/200 ML BAG ONE (07:40)
[2020-07-10] MEDS ORDERED: Sodium Chloride 0.9% 100 ML ONE (07:40)
[2020-07-10] MEDS ORDERED: Fentanyl 100 MCG/2 ML VIAL ONE ×5 (08:15→14:37)
[2020-07-10] MEDS ORDERED: Midazolam HCl 2 mg/2 ml Vial ONE (08:15)
[2020-07-10] MEDS ORDERED: Sodium Chloride 0.9% 10 ML ONE (08:15)
[2020-07-10] MEDS ORDERED: Clindamycin/D5W 900 mg/50 ml Premix Bag ONE (10:08)
[2020-07-10] MEDS ORDERED: Levofloxacin 500 mg/D5W 100 ml Premix Bag ONE (10:09)
[2020-07-10] MEDS ORDERED: Rocuronium Bromide 10 MG/ML (10ML VIAL) ONE (11:31)
[2020-07-10] MEDS ORDERED: PROPOFOL 200 MG/20 ML VIAL ONE (11:31)
[2020-07-10] MEDS ORDERED: Dexamethasone 20 MG/5 ML VIAL ONE (11:31)
[2020-07-10] MEDS ORDERED: EPHEDRINE 25 MG/5 ML SYRINGE ONE ×2 (11:31)
[2020-07-10] MEDS ORDERED: Bupivacaine HCl 0.5%/Epinephrine 1:200,000/PF 30 ml Vial ONE (11:31)
[2020-07-10] MEDS ORDERED: Lidocaine 1% PF 5 ML VIAL ONE (11:31)
[2020-07-10] MEDS ORDERED: Ondansetron PF 4 MG/2 ML Vial ONE (11:31)
[2020-07-10] MEDS ORDERED: Ropivacaine 0.2% HCl/PF (40 MG/20 ML VIAL) ONE (11:31)
[2020-07-10] MEDS ORDERED: Glycopyrrolate 0.2 MG/ML 5 ML SYRINGE ONE (11:31)
[2020-07-10] MEDS ORDERED: ePHEDrine 50 MG/ML VIAL ONE (11:39)
[2020-07-10] MEDS ORDERED: Ketorolac Tromethamine 30 MG/ML VIAL IVP PRN (12:10)
[2020-07-10] MEDS ORDERED: Ondansetron HCl/PF 4 MG/2 ML Vial IVP PRN (12:36)
[2020-07-10] MEDS ORDERED: Promethazine HCl 25 MG/ML VIAL SLOW IVP PRN (12:36)
[2020-07-10] MEDS ORDERED: PACU-Morphine 4MG/ML VIAL SLOW IVP PRN (12:36)
[2020-07-10] MEDS ORDERED: Promethazine HCl 25 MG/ML VIAL IM PRN ×2 (12:36→13:00)
[2020-07-10] MEDS ORDERED: Fentanyl 100 MCG/2 ML VIAL IV PRN (12:47)
[2020-07-10] MEDS ORDERED: Ropivacaine 0.2% 550 ML 550 ML NERVE BLCK SCH (13:00)
[2020-07-10] MEDS ORDERED: traMADol HCl 50 MG TAB PO PRN ×3 (13:00→14:38)
[2020-07-10] MEDS ORDERED: HYDROcodone/Acetaminophen 5/325 mg Tablet PO PRN (13:00)
[2020-07-10] MEDS ORDERED: Zolpidem Tartrate 5 MG TAB PO PRN ×2 (13:00→14:38)
[2020-07-10] MEDS ORDERED: Bisacodyl 10 MG SUPP PR PRN (14:38)
[2020-07-10] MEDS ORDERED: Ondansetron ODT 4 MG TAB PO PRN (14:38)
[2020-07-10] MEDS ORDERED: Ondansetron PF 4 MG/2 ML Vial IVP PRN (14:38)
[2020-07-10] MEDS ORDERED: Methocarbamol 1 GM/10 ML VIAL SLOW IVP PRN (14:38)
[2020-07-10] MEDS ORDERED: Methocarbamol 500 MG TAB PO PRN (14:38)
[2020-07-10] MEDS ORDERED: diphenhydrAMINE 50 MG CAP PO PRN (14:38)
[2020-07-10] MEDS ORDERED: Acetaminophen 325 MG TAB PO PRN (14:38)
[2020-07-10] MEDS ORDERED: Milk Of Magnesia 30 ML UDCUP PO PRN (14:38)
[2020-07-10] MEDS ORDERED: HYDROcodone/Acetaminophen 10/325 mg Tablet PO PRN ×2 (14:38)
[2020-07-10] MEDS ORDERED: Fentanyl 100 MCG/2 ML VIAL SLOW IVP PRN (14:38)
--- NOTE | 2020-07-10 16:23 | OP ---
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 POSTOPERATIVE DIAGNOSIS: Right rotator cuff tear, supraspinatus, with painful right total shoulder arthroplasty. PROCEDURE PERFORMED: Right revision total shoulder arthroplasty conversion to reverse total shoulder arthroplasty, 2 components. POWER REACTOR OPERATOR: Rahel Christiansen PA-C ANESTHESIOLOGIST: Ninoska Arriaga MD ANESTHESIA: The patient received a general intubation with interscalene block. ESTIMATED BLOOD LOSS: 150 mL. TOURNIQUET TIME: None. IMPLANTS: A glenoid Perform reverse 25 mm baseplate; 30 mm central screw; 26, 30, and 18 mm screws; glenosphere, 36 mm standard humeral flex tray, +0 low offset, and a 36 mm +6 poly. ANTIBIOTICS: Vancomycin 1 g, clindamycin 900, and Levaquin 500. COMPLICATIONS: None. HISTORY OF PRESENT ILLNESS: Ms. Meadows is a 80-year-old female who presented almost a year after right total shoulder. She had failed conservative measures and had what appeared to be complex regional pain syndrome. I had aspirated her shoulder, which was negative. Her CRP, ESR, and white blood cell count were within normal limits. CT scan showed some contrast concerning for postsurgical changes versus tear. I discussed with her the risks and benefits as she has failed conservative measures to convert to reverse. I discussed the risks and benefits of the surgery to include pain, scar, bleeding, infection, damage to vital structures, decreased range of motion and strength, continued pain, increasing pain despite surgery, and loss of life or limb. The patient and family understood the risks and benefits of the procedure and elected to proceed. DESCRIPTION OF PROCEDURE: Time-out was performed designating the patient's right upper extremity as the operative site based on site, consents, and marking. After time-out, the patient's right upper extremity was prepped and draped in sterile fashion. I made an incision down through the deltopectoral interval, through the previous scar, developed small skin flaps, found the deltopectoral interval and proceeded to enter the deltopectoral interval. We had adhesions of the deltoid down to the patient's humerus as well to the supraspinatus. I had to develop this plane, place a retractor, expose and came down through where the biceps interval was, came down through the patient's remnant repair, which seemed to be intact. We did release the inferior capsule and dislocated the shoulder. The subscapularis appeared intact. We saw that there was a fairly sizable tear in the patient's supraspinatus, which appeared to be potentially wide. She maybe migrating proximally and having pain. We took the tuning fork and knocked off the patient's humeral component. We took some of the samples, which were sent off for fresh frozen, which showed macrophages and no white blood cells per high-powered field. We debrided off and cleaned off the stem. We tried to extract it, but it was stable. Now, we moved to the glenoid, placed our Bankart and Reema retractors, exposed the glenoid. We cleaned up the edge with the use of the osteotome and we were able to remove the glenoid baseplate. We had center PEG and one superior PEG, which I drilled and removed. The center PEG I left in place to place my center screw, so I was not continuing to fall into a cavitary defect. I found my spot, placed it, and liked the overall position. I drilled my center screw and removed the excess with a 10 degree tilt. I removed the excess poly. After I drilled the center screw and removed the excess poly, we reamed and ensured that there was clean base position before placing our center drill screw. We then placed the implant in position and drilled for a 30 mm screw, screwed it down getting bicortical fit. I then drilled anterior to compress and then superior and inferior screws for locking. I washed, placed a 36 mm glenosphere, and moved to the humerus. We trialed at 12 o'clock with a standard 6 mm poly, which we reduced. We liked the overall alignment, reduction, stability, and tightness. We dislocated, placed the poly in position, placed our tray in position, hammered it into position, placed our poly in the same position at 12 o'clock, reduced the shoulder, and washed. We closed with #5 Ethibond the remnant subscapularis. We had cut back the supraspinatus. We closed the deltopectoral interval and closed subcu and skin with 0, 2-0, and benjie. The patient will be admitted. She will receive 24 hours of antibiotics. She will be discharged home tomorrow or Tuesday depending on how she is doing . The patient's outcome is guarded. My dietitian assistant helped me throughout the case in incision exposure, controlling bleeding, removal of explant of implant, implantation of new implant, and closure and repositioning onto her hospital bed. Job ID: [id number] MTDD
[2020-07-10] MEDS: Ondansetron PF 4 MG/2 ML Vial IVP PRN ×2 (16:48→20:59)
[2020-07-10] MEDS: Clindamycin/D5W 900 MG in Premix Bag 1 BAG IVPB SCH ×2 (16:48→23:05)
[2020-07-10 18:00] VITALS: BMI 17.8
[2020-07-10] MEDS: Lactated Ringer's 1,000 ML IV SCH (19:40)
[2020-07-10] MEDS ORDERED: Vancomycin 1 GM in Premix Bag 1 BAG IVPB SCH (21:00)
[2020-07-10] MEDS: Vit A,C & E/Lutein/Minerals Tablet PO SCH (23:04)
[2020-07-10] MEDS: Calcium Carbonate 600 MG + Vit D TAB PO SCH (23:04)
[2020-07-10] MEDS: Gabapentin 100 MG CAP PO SCH (23:04)
[2020-07-11] MEDS: traMADol HCl 50 MG TAB PO PRN ×2 (02:15→12:09)
[2020-07-11] MEDS: Levothyroxine Sodium 75 MCG TAB PO SCH (06:13)
[2020-07-11] MEDS: HYDROcodone/Acetaminophen 5/325 mg Tablet PO PRN ×2 (06:14→14:32)
[2020-07-11] MEDS: Lactated Ringer's 1,000 ML IV SCH ×2 (07:11→21:57)
[2020-07-11] MEDS: Fish Oil 1,000 MG CAP PO SCH (09:17)
[2020-07-11] MEDS: Vit A,C & E/Lutein/Minerals Tablet PO SCH ×2 (09:18→20:29)
--- NOTE | 2020-07-11 10:48 | PRG ---
DATE OF SERVICE: 07/11/2020 SUBJECTIVE: Ms. Meadows is a 80-year-old female, who is status post revision total shoulder arthroplasty reverse yesterday. The patient is resting in bed. Pain is elevated. Otherwise, without complaints. OBJECTIVE: VITAL SIGNS: Afebrile. Vital signs stable. GENERAL: Alert and oriented, in no acute distress. EXTREMITIES: Right upper extremity, she has still got sensation loss from a previous block, with palpable pulses. Wound looks clean, dry, and intact. IMPRESSION: Status post revision total shoulder arthroplasty. ASSESSMENT AND PLAN: The patient's pain is still elevated and she is uncomfortable. We will keep her overnight to discharge her tomorrow. The patient will be discharged home with pain medications and will follow up in 2 weeks for staple removal. Job ID: [id number]
[2020-07-11] MEDS: Calcium Carbonate 600 MG + Vit D TAB PO SCH (20:29)
[2020-07-11] MEDS: Gabapentin 100 MG CAP PO SCH (20:29)
[2020-07-12] MEDS: Levothyroxine Sodium 75 MCG TAB PO SCH (06:21)
[2020-07-12] MEDS: HYDROcodone/Acetaminophen 5/325 mg Tablet PO PRN ×2 (06:21→12:03)
[2020-07-12] MEDS: Fish Oil 1,000 MG CAP PO SCH (08:22)
[2020-07-12] MEDS: Vit A,C & E/Lutein/Minerals Tablet PO SCH (08:23)
[2020-07-12 12:00] VITALS: BP 119/70; TEMP 97.8
[2020-07-17] MEDS ORDERED: Gabapentin 100 MG CAP PO SCH (09:00)
== END 2020-07-12 12:46 | disposition home or self-care (01) | DRG 483 ==
LOC: SURG A 07-10 07:18 → SJJU 07-10 15:21
PROVIDERS: ADMIT Orthopaedic Surgery; ATTEND Orthopaedic Surgery
PROC: 0RRJ00Z Replacement of Right Shoulder Joint with Reverse Ball and Socket Synthetic Substitute, Open Approach (ICD-10-PCS; principal; 2020-07-10)
PROC: 0RPJ0JZ Removal of Synthetic Substitute from Right Shoulder Joint, Open Approach (ICD-10-PCS; 2020-07-10)
PROC: 0RB Upper Joints, Excision (ICD-10-PCS; 2020-07-10)
DX: T84.098A Other mechanical complication of other internal joint prosthesis, initial encounter (principal); G90.511 Complex regional pain syndrome I of right upper limb; Z20.828 Contact with and (suspected) exposure to other viral communicable diseases; M75.101 Unspecified rotator cuff tear or rupture of right shoulder, not specified as traumatic; Z96.611 Presence of right artificial shoulder joint; E03.9 Hypothyroidism, unspecified; H35.30 Unspecified macular degeneration; M19.90 Unspecified osteoarthritis, unspecified site; Y83.8 Other surgical procedures as the cause of abnormal reaction of the patient, or of later complication, without mention of misadventure at the time of the procedure; T84.84XA Pain due to internal orthopedic prosthetic devices, implants and grafts, initial encounter; Z90.49 Acquired absence of other specified parts of digestive tract; Z79.899 Other long term (current) drug therapy; Z88.6 Allergy status to analgesic agent; Z88.0 Allergy status to penicillin; Z91.041 Radiographic dye allergy status
CPT/HCPCS: 80048; 85025; 85610; 85730; 87070; 87205; 87635; 88305; 88331; 93005; A4306; C1713; C1776; J1100; J1956; J2250; J2405; J2550; J2704; J2795; J3010; J3370; J3490; U0003

== ENCOUNTER 2021-01-23 08:28 | Outpatient (CLI) | payer MEDICARE | END 2021-01-23 08:29 | disposition home or self-care (01) | LOC: CT 08:28 | PROVIDERS: ATTEND Family Medicine | DX: R10.13 Epigastric pain (principal) | CPT/HCPCS: 71250; 74150 ==

== ENCOUNTER 2021-07-27 09:23 | Outpatient (CLI) | payer MEDICARE ==
[2021-07-27] MEDS ORDERED: Iopamidol 370 76% 100 ML VIAL ONE (10:57)
== END 2021-07-27 09:24 | disposition home or self-care (01) ==
LOC: CT 09:23
PROVIDERS: ATTEND Internal Medicine Gastroenterology
DX: K56.609 Unspecified intestinal obstruction, unspecified as to partial versus complete obstruction (principal); R14.0 Abdominal distension (gaseous); R63.4 Abnormal weight loss; N20.2 Calculus of kidney with calculus of ureter
CPT/HCPCS: 74178; 82565

== ENCOUNTER 2021-07-27 23:26 | Inpatient (IN) | payer MEDICARE ==
[2021-07-27] MEDS ORDERED: Morphine 4 MG/ML VIAL ONE (23:53)
[2021-07-27] MEDS ORDERED: Ondansetron PF 4 MG/2 ML Vial ONE (23:53)
[2021-07-28 00:50] LABS: #Lymphocytes 0.9 thou/uL (1.20-3.40); #Monocytes 0.6 thou/uL (0.11-0.59); #Neutrophils 6.6 thou/uL (1.40-6.50); %Basophils 0.4 % (0.0-1.0); %Eosinophils 0.1 % (0.0-10.0); %Lymphocytes 10.5 % (21.0-51.0); %Monocytes 6.9 % (0.0-10.0); %Neutrophils 82.1 % (42.0-75.0); Hemoglobin 13.4 g/dL (12.0-16.0); Mean Corpuscular HGB CONC 34.1 g/dL (32.0-36.0); Mean Corpuscular Hemoglobin 34.8 pg (27.0-31.0); Mean Platelet Volume 7.3 fL (7.4-10.4); Platelet Count 164 thou/uL (130-400); RBC Distribution Width 11.6 % (11.5-14.5); Red Blood Cell (RBC) Count 3.87 mill/uL (4.20-5.40); White Blood Cell (WBC) Count 8.1 thou/uL (4.8-10.8)
[2021-07-28 01:06] LABS: ALT (SGPT) 28 U/L (8-55); AST (SGOT) 23 U/L (5-34); Albumin 3.8 g/dL (3.4-4.8); Alkaline Phosphatase 118 U/L (40-110); Anion Gap 13 mmol/L (10-20); BUN (Urea Nitrogen) 20 mg/dL (9.8-20.1); Bilirubin, Total 0.5 mg/dL (0.2-1.2); Calc. Creatinine Clearance 0 mL/min (70-130); Calcium 9.5 mg/dL (7.8-10.44); Carbon Dioxide 24 mmol/L (23-31); Chloride 105 mmol/L (98-107); Globulin 2.7 g/dL (2.4-3.5); Glucose 126 mg/dL (83-110); Potassium 4.2 mmol/L (3.5-5.1); Protein, Total 6.5 g/dL (5.8-8.1); Sodium 138 mmol/L (136-145)
[2021-07-28 01:20] LABS: Bilirubin Negative (Negative); Blood, Urine Negative (Negative); Clarity Clear (Clear); Glucose, Urine (Dipstick) Normal (Negative); Ketone, Urine Negative (Negative); Leukocyte Negative Leu/uL (Negative); Nitrite Negative (Negative); Protein, Urine (Dipstick) Negative (Neg-Trace); Specific Gravity, Urine 1.023 (1.002-1.036); Urobilinogen Normal mg/dL (Less than 2); pH, Urine 5.5 (5.0-9.0)
[2021-07-28] MEDS ORDERED: Acetaminophen 650 MG Suppository PR PRN (03:10)
[2021-07-28] MEDS ORDERED: Ondansetron PF 4 MG/2 ML Vial IVP PRN ×2 (03:10→15:48)
[2021-07-28] MEDS ORDERED: Electrolyte Replacement Protocol 1 EACH FS SCH (03:30)
[2021-07-28 04:03] LABS: SARS-CoV-2 NAA Rapid Test Not Detected (NotDetected)
[2021-07-28] MEDS: Morphine 4 MG/ML VIAL SLOW IVP PRN ×2 (04:20→08:35)
[2021-07-28] MEDS: Sodium Chloride 0.9% 1,000 ML IV SCH ×2 (04:21→18:23)
[2021-07-28 04:36] VITALS: BMI 16.0
[2021-07-28] MEDS ORDERED: metroNIDAZOLE 500 MG in Premix Bag 1 BAG IVPB SCH (06:00)
[2021-07-28 08:02] LABS: Anion Gap 11 mmol/L (10-20); BUN (Urea Nitrogen) 14 mg/dL (9.8-20.1); Calc. Creatinine Clearance 42 mL/min (70-130); Calcium 8.9 mg/dL (7.8-10.44); Carbon Dioxide 18 mmol/L (23-31); Chloride 111 mmol/L (98-107); Glucose 90 mg/dL (83-110); Potassium 4.4 mmol/L (3.5-5.1); Sodium 136 mmol/L (136-145)
[2021-07-28] MEDS ORDERED: Pantoprazole 40 MG VIAL IVP SCH (09:00)
[2021-07-28] MEDS ORDERED: FLU VACC QS2021-22(65YR UP)/PF 240 MCG/0.7 ML SYRINGE IM ONE (09:00)
[2021-07-28 09:30] LABS: #Lymphocytes 1.5 thou/uL (1.20-3.40); #Monocytes 0.7 thou/uL (0.11-0.59); #Neutrophils 6.9 thou/uL (1.40-6.50); %Basophils 0.3 % (0.0-1.0); %Eosinophils 0.4 % (0.0-10.0); %Monocytes 8.1 % (0.0-10.0); %Neutrophils 75.2 % (42.0-75.0); Hemoglobin 14.4 g/dL (12.0-16.0); MDiff Complete? YES; Mean Corpuscular HGB CONC 32.4 g/dL (32.0-36.0); Mean Corpuscular Hemoglobin 33.2 pg (27.0-31.0); Mean Platelet Volume 9.9 fL (7.4-10.4); Platelet Count 83 thou/uL (130-400); Platelet Morphology Comment Appears Decreased; Polychromasia SLIGHT = 2-3 cells (100X) (0-2/hpf); RBC Distribution Width 11.8 % (11.5-14.5); Red Blood Cell (RBC) Count 4.34 mill/uL (4.20-5.40); White Blood Cell (WBC) Count 9.1 thou/uL (4.8-10.8)
[2021-07-28] MEDS ORDERED: Levofloxacin 500 mg/D5W 100 ml Premix Bag ONE (13:00)
[2021-07-28] MEDS ORDERED: Fentanyl 250 MCG/5 ML VIAL ONE (13:22)
[2021-07-28] MEDS ORDERED: Lidocaine 1% PF 5 ML VIAL ONE (13:35)
[2021-07-28] MEDS ORDERED: Dexamethasone 20 MG/5 ML VIAL ONE (13:35)
[2021-07-28] MEDS ORDERED: Rocuronium Bromide 10 MG/ML (10ML VIAL) ONE (13:35)
[2021-07-28] MEDS ORDERED: PHENYLEPHRINE-NS 100 MCG/ML 10 ML SYRINGE ONE (13:35)
[2021-07-28] MEDS ORDERED: Ondansetron PF 4 MG/2 ML Vial ONE (13:35)
[2021-07-28] MEDS ORDERED: Metoprolol Tartrate 5 MG/5 ML VIAL ONE (13:35)
[2021-07-28] MEDS ORDERED: PROPOFOL 200 MG/20 ML VIAL ONE (13:35)
[2021-07-28] MEDS ORDERED: HYDROmorphone 2 MG/ML VIAL SLOW IVP PRN (15:42)
[2021-07-28] MEDS ORDERED: Promethazine HCl 25 MG/ML VIAL IVPB PRN (15:42)
[2021-07-28] MEDS ORDERED: Meperidine HCl/PF 25 MG/ML VIAL SLOW IVP PRN (15:42)
[2021-07-28] MEDS ORDERED: Promethazine HCl 25 MG/ML VIAL IM PRN ×3 (15:42→17:56)
[2021-07-28] MEDS ORDERED: Ondansetron HCl/PF 4 MG/2 ML Vial IVP PRN (15:42)
[2021-07-28] MEDS ORDERED: diphenhydrAMINE 50 MG/ML VIAL IM PRN (15:48)
[2021-07-28] MEDS ORDERED: diphenhydrAMINE 50 MG/ML VIAL IVP PRN (15:48)
[2021-07-28] MEDS ORDERED: diphenhydrAMINE 25 MG CAP PO PRN (15:48)
[2021-07-28] MEDS ORDERED: Naloxone HCl 0.4 mg/ml Vial IV PRN (15:48)
[2021-07-28] MEDS ORDERED: Morphine CADD 1 MG/ML CADD IVPB PRN (15:48)
[2021-07-28] MEDS ORDERED: Communication Order-Pharmacy FS SCH (16:00)
[2021-07-28] MEDS ORDERED: Fentanyl 100 MCG/2 ML VIAL ONE (16:15)
[2021-07-28] MEDS ORDERED: Morphine CADD 100 ML IVPB PRN (16:41)
[2021-07-28] MEDS ORDERED: Morphine Sulfate 100 MG in Dextrose 5% in Water 98 ML IV PRN (16:44)
[2021-07-28] MEDS ORDERED: hydrALAZINE 20 MG/ML VIAL SLOW IVP PRN (17:56)
[2021-07-28] MEDS ORDERED: Dextrose 5% in Water 1,000 ML IV PRN (17:56)
[2021-07-28] MEDS ORDERED: Ondansetron ODT 4 MG TAB PO PRN (17:56)
[2021-07-28] MEDS ORDERED: Dextrose 50% Abboject 50 ML SYRINGE SLOW IVP PRN (17:56)
[2021-07-28] MEDS: D5 1/2 NS w/20 mEq KCL 1,000 ML IV SCH (18:35)
[2021-07-28] MEDS: Famotidine/PF 20 mg/2ml Vial SLOW IVP SCH (20:02)
[2021-07-29] MEDS: D5 1/2 NS w/20 mEq KCL 1,000 ML IV SCH ×3 (03:40→20:07)
[2021-07-29 05:43] LABS: #Lymphocytes 0.8 thou/uL (1.20-3.40); #Monocytes 0.7 thou/uL (0.11-0.59); #Neutrophils 6.9 thou/uL (1.40-6.50); %Eosinophils 0.2 % (0.0-10.0); %Lymphocytes 9.8 % (21.0-51.0); %Monocytes 8.8 % (0.0-10.0); %Neutrophils 81.2 % (42.0-75.0); Hemoglobin 13.3 g/dL (12.0-16.0); Mean Corpuscular HGB CONC 33.3 g/dL (32.0-36.0); Mean Corpuscular Hemoglobin 34.4 pg (27.0-31.0); Platelet Count 140 thou/uL (130-400); RBC Distribution Width 11.6 % (11.5-14.5); Red Blood Cell (RBC) Count 3.87 mill/uL (4.20-5.40); White Blood Cell (WBC) Count 8.5 thou/uL (4.8-10.8)
[2021-07-29 06:07] LABS: Anion Gap 10 mmol/L (10-20); BUN (Urea Nitrogen) 12 mg/dL (9.8-20.1); Calc. Creatinine Clearance 46 mL/min (70-130); Calcium 7.9 mg/dL (7.8-10.44); Carbon Dioxide 24 mmol/L (23-31); Chloride 105 mmol/L (98-107); Glucose 136 mg/dL (83-110); Sodium 135 mmol/L (136-145)
[2021-07-29] MEDS: Enoxaparin Sodium 40 MG/0.4 ML SYRINGE SC SCH (08:18)
[2021-07-29] MEDS: Famotidine/PF 20 mg/2ml Vial SLOW IVP SCH (20:07)
[2021-07-30 05:06] LABS: #Eosinphils 0.1 thou/uL (0.0-0.7); #Lymphocytes 1.5 thou/uL (1.20-3.40); #Monocytes 0.6 thou/uL (0.11-0.59); #Neutrophils 6.1 thou/uL (1.40-6.50); %Basophils 0.4 % (0.0-1.0); %Eosinophils 0.9 % (0.0-10.0); %Lymphocytes 17.9 % (21.0-51.0); %Monocytes 6.9 % (0.0-10.0); Hemoglobin 13.2 g/dL (12.0-16.0); Mean Corpuscular HGB CONC 33.8 g/dL (32.0-36.0); Mean Corpuscular Hemoglobin 34.9 pg (27.0-31.0); Platelet Count 162 thou/uL (130-400); RBC Distribution Width 11.6 % (11.5-14.5); Red Blood Cell (RBC) Count 3.78 mill/uL (4.20-5.40); White Blood Cell (WBC) Count 8.3 thou/uL (4.8-10.8)
[2021-07-30] MEDS: D5 1/2 NS w/20 mEq KCL 1,000 ML IV SCH ×2 (05:18→18:32)
[2021-07-30 05:45] LABS: Anion Gap 10 mmol/L (10-20); BUN (Urea Nitrogen) 10 mg/dL (9.8-20.1); Calc. Creatinine Clearance 49 mL/min (70-130); Calcium 7.8 mg/dL (7.8-10.44); Carbon Dioxide 20 mmol/L (23-31); Chloride 107 mmol/L (98-107); Glucose 123 mg/dL (83-110); Potassium 4.5 mmol/L (3.5-5.1); Sodium 132 mmol/L (136-145)
[2021-07-30] MEDS: Enoxaparin Sodium 40 MG/0.4 ML SYRINGE SC SCH (09:17)
[2021-07-30] MEDS: Morphine 4 MG/ML VIAL SLOW IVP PRN ×2 (13:47→21:18)
[2021-07-30] MEDS: Famotidine/PF 20 mg/2ml Vial SLOW IVP SCH (21:18)
[2021-07-30] MEDS: Ondansetron PF 4 MG/2 ML Vial IVP PRN (21:25)
[2021-07-31] MEDS: D5 1/2 NS w/20 mEq KCL 1,000 ML IV SCH ×2 (00:36→15:27)
[2021-07-31 05:58] LABS: #Eosinphils 0.3 thou/uL (0.0-0.7); #Lymphocytes 1.2 thou/uL (1.20-3.40); #Monocytes 0.4 thou/uL (0.11-0.59); #Neutrophils 4.7 thou/uL (1.40-6.50); %Basophils 0.1 % (0.0-1.0); %Eosinophils 4.2 % (0.0-10.0); %Lymphocytes 18.6 % (21.0-51.0); %Monocytes 6.1 % (0.0-10.0); %Neutrophils 71.1 % (42.0-75.0); Hemoglobin 12.3 g/dL (12.0-16.0); Mean Corpuscular HGB CONC 34.7 g/dL (32.0-36.0); Mean Corpuscular Hemoglobin 35.4 pg (27.0-31.0); Mean Platelet Volume 7.6 fL (7.4-10.4); Platelet Count 152 thou/uL (130-400); RBC Distribution Width 11.3 % (11.5-14.5); Red Blood Cell (RBC) Count 3.48 mill/uL (4.20-5.40); White Blood Cell (WBC) Count 6.6 thou/uL (4.8-10.8)
[2021-07-31 06:22] LABS: Anion Gap 6 mmol/L (10-20); BUN (Urea Nitrogen) 5 mg/dL (9.8-20.1); Calc. Creatinine Clearance 51 mL/min (70-130); Calcium 8.4 mg/dL (7.8-10.44); Carbon Dioxide 25 mmol/L (23-31); Chloride 106 mmol/L (98-107); Glucose 123 mg/dL (83-110); Magnesium 1.7 mg/dL (1.6-2.6); Sodium 133 mmol/L (136-145)
[2021-07-31 06:26] LABS: Phosphorus 1.5 mg/dL (2.3-4.7)
[2021-07-31] MEDS ORDERED: Electrolyte Replacement Protocol FS PRN (07:30)
[2021-07-31] MEDS ORDERED: Magnesium Sulfate 3 GM in Sodium Chloride 0.9% 100 ML IV SCH (08:15)
[2021-07-31] MEDS: Pantoprazole 40 MG VIAL IVP SCH ×3 (08:56→21:20)
[2021-07-31] MEDS: Enoxaparin Sodium 40 MG/0.4 ML SYRINGE SC SCH (08:56)
[2021-07-31] MEDS ORDERED: Sodium Phosphate 30 MMOL in Sodium Chloride 0.9% 250 ML 250 ML IVPB SCH (09:00)
[2021-07-31] MEDS: Morphine 4 MG/ML VIAL SLOW IVP PRN (21:15)
[2021-08-01] MEDS: Morphine 4 MG/ML VIAL SLOW IVP PRN ×3 (03:33→21:56)
[2021-08-01 06:27] LABS: #Eosinphils 0.4 thou/uL (0.0-0.7); #Monocytes 0.5 thou/uL (0.11-0.59); #Neutrophils 3.8 thou/uL (1.40-6.50); %Eosinophils 6.7 % (0.0-10.0); %Lymphocytes 17.7 % (21.0-51.0); %Monocytes 8.1 % (0.0-10.0); %Neutrophils 67.5 % (42.0-75.0); Hemoglobin 11.4 g/dL (12.0-16.0); Mean Corpuscular HGB CONC 35.7 g/dL (32.0-36.0); Mean Corpuscular Hemoglobin 35.9 pg (27.0-31.0); Mean Platelet Volume 7.4 fL (7.4-10.4); Platelet Count 163 thou/uL (130-400); RBC Distribution Width 11.3 % (11.5-14.5); Red Blood Cell (RBC) Count 3.18 mill/uL (4.20-5.40); White Blood Cell (WBC) Count 5.6 thou/uL (4.8-10.8)
[2021-08-01 06:51] LABS: Anion Gap 7 mmol/L (10-20); BUN (Urea Nitrogen) Less than 4 mg/dL (9.8-20.1); Calc. Creatinine Clearance 55 mL/min (70-130); Calcium 7.9 mg/dL (7.8-10.44); Carbon Dioxide 24 mmol/L (23-31); Chloride 108 mmol/L (98-107); Glucose 123 mg/dL (83-110); Magnesium 2.2 mg/dL (1.6-2.6); Phosphorus 2.4 mg/dL (2.3-4.7); Potassium 4.1 mmol/L (3.5-5.1); Sodium 135 mmol/L (136-145)
[2021-08-01] MEDS: D5 1/2 NS w/20 mEq KCL 1,000 ML IV SCH ×3 (07:37→22:00)
[2021-08-01] MEDS: Enoxaparin Sodium 40 MG/0.4 ML SYRINGE SC SCH (09:00)
[2021-08-01] MEDS: Pantoprazole 40 MG VIAL IVP SCH ×4 (09:00→21:40)
[2021-08-01] MEDS: Ondansetron PF 4 MG/2 ML Vial IVP PRN (15:53)
[2021-08-02] MEDS: Morphine 4 MG/ML VIAL SLOW IVP PRN ×2 (02:05→05:52)
[2021-08-02] MEDS: D5 1/2 NS w/20 mEq KCL 1,000 ML IV SCH (05:53)
[2021-08-02 06:15] LABS: #Eosinphils 0.4 thou/uL (0.0-0.7); #Lymphocytes 1.1 thou/uL (1.20-3.40); #Monocytes 0.7 thou/uL (0.11-0.59); #Neutrophils 3.3 thou/uL (1.40-6.50); %Basophils 0.4 % (0.0-1.0); %Eosinophils 7.8 % (0.0-10.0); %Lymphocytes 19.9 % (21.0-51.0); %Monocytes 12.4 % (0.0-10.0); %Neutrophils 59.6 % (42.0-75.0); Hemoglobin 11.2 g/dL (12.0-16.0); Mean Corpuscular Hemoglobin 35.5 pg (27.0-31.0); Platelet Count 165 thou/uL (130-400); RBC Distribution Width 11.2 % (11.5-14.5); Red Blood Cell (RBC) Count 3.16 mill/uL (4.20-5.40); White Blood Cell (WBC) Count 5.6 thou/uL (4.8-10.8)
[2021-08-02 06:34] LABS: Anion Gap 9 mmol/L (10-20); BUN (Urea Nitrogen) Less than 4 mg/dL (9.8-20.1); Calc. Creatinine Clearance 52 mL/min (70-130); Calcium 8.1 mg/dL (7.8-10.44); Carbon Dioxide 21 mmol/L (23-31); Chloride 106 mmol/L (98-107); Glucose 109 mg/dL (83-110); Potassium 4.4 mmol/L (3.5-5.1); Sodium 132 mmol/L (136-145)
[2021-08-02] MEDS: Pantoprazole 40 MG VIAL IVP SCH ×2 (07:25→09:36)
[2021-08-02] MEDS ORDERED: D5 1/2 NS w/20 mEq KCL 1,000 ML IV SCH (07:40)
[2021-08-02] MEDS ORDERED: Sodium Chloride 0.9% 1,000 ML IV SCH (07:45)
[2021-08-02] MEDS: Enoxaparin Sodium 40 MG/0.4 ML SYRINGE SC SCH (09:36)
[2021-08-02] MEDS ORDERED: Ibuprofen 200 MG TAB PO PRN (13:21)
[2021-08-02] MEDS ORDERED: Acetaminophen 325 MG TAB PO SCH (13:45)
[2021-08-02] MEDS: Acetaminophen 325 MG TAB PO SCH ×2 (17:56→23:48)
[2021-08-02] MEDS: Zolpidem Tartrate 5 MG TAB PO PRN (20:11)
[2021-08-03] MEDS: Acetaminophen 325 MG TAB PO SCH ×3 (06:26→18:01)
[2021-08-03 07:53] LABS: #Eosinphils 0.3 thou/uL (0.0-0.7); #Monocytes 0.6 thou/uL (0.11-0.59); #Neutrophils 3.7 thou/uL (1.40-6.50); %Basophils 0.3 % (0.0-1.0); %Eosinophils 5.2 % (0.0-10.0); %Lymphocytes 17.1 % (21.0-51.0); %Monocytes 11.2 % (0.0-10.0); %Neutrophils 66.2 % (42.0-75.0); Hemoglobin 12.9 g/dL (12.0-16.0); Mean Corpuscular HGB CONC 33.8 g/dL (32.0-36.0); Mean Corpuscular Hemoglobin 34.4 pg (27.0-31.0); Mean Platelet Volume 7.3 fL (7.4-10.4); Platelet Count 176 thou/uL (130-400); RBC Distribution Width 11.2 % (11.5-14.5); Red Blood Cell (RBC) Count 3.75 mill/uL (4.20-5.40); White Blood Cell (WBC) Count 5.6 thou/uL (4.8-10.8)
[2021-08-03 08:16] LABS: Anion Gap 12 mmol/L (10-20); BUN (Urea Nitrogen) 6 mg/dL (9.8-20.1); Calc. Creatinine Clearance 50 mL/min (70-130); Calcium 8.9 mg/dL (7.8-10.44); Carbon Dioxide 22 mmol/L (23-31); Chloride 104 mmol/L (98-107); Glucose 72 mg/dL (83-110); Magnesium 2.1 mg/dL (1.6-2.6); Phosphorus 3.1 mg/dL (2.3-4.7); Potassium 4.2 mmol/L (3.5-5.1); Sodium 134 mmol/L (136-145)
[2021-08-03] MEDS: Enoxaparin Sodium 40 MG/0.4 ML SYRINGE SC SCH (08:54)
[2021-08-03] MEDS: Pantoprazole 40 MG VIAL IVP SCH (08:54)
[2021-08-03] MEDS ORDERED: Fish Oil 1,000 MG CAP PO SCH (10:45)
[2021-08-03] MEDS: Zolpidem Tartrate 5 MG TAB PO PRN (21:00)
[2021-08-03] MEDS: Gabapentin 100 MG CAP PO SCH (21:00)
[2021-08-04] MEDS: Acetaminophen 325 MG TAB PO SCH ×5 (02:55→22:39)
[2021-08-04] MEDS: Levothyroxine Sodium 75 MCG TAB PO SCH (06:01)
[2021-08-04] MEDS: Pantoprazole 40 MG VIAL IVP SCH (09:34)
[2021-08-04] MEDS: Enoxaparin Sodium 40 MG/0.4 ML SYRINGE SC SCH (09:34)
[2021-08-04] MEDS: Fish Oil 1,000 MG CAP PO SCH (09:34)
[2021-08-04] MEDS: Gabapentin 100 MG CAP PO SCH (20:40)
[2021-08-04] MEDS: Zolpidem Tartrate 5 MG TAB PO PRN (22:39)
[2021-08-05] MEDS: Levothyroxine Sodium 75 MCG TAB PO SCH (05:54)
[2021-08-05] MEDS: Acetaminophen 325 MG TAB PO SCH (05:54)
[2021-08-05] MEDS: Enoxaparin Sodium 40 MG/0.4 ML SYRINGE SC SCH (08:57)
[2021-08-05] MEDS: Fish Oil 1,000 MG CAP PO SCH (08:58)
[2021-08-05 11:18] VITALS: BP 141/74; TEMP 97.5
== END 2021-08-05 12:57 | disposition home or self-care (01) | DRG 330 ==
LOC: ERS 23:26 → SURG A 07-28 02:00
PROVIDERS: ADMIT Student in an Organized Health Care Education/Training Program; ATTEND Internal Medicine
PROC: 0DB80ZZ Excision of Small Intestine, Open Approach (ICD-10-PCS; principal; 2021-07-28)
PROC: 0DNW0ZZ Release Peritoneum, Open Approach (ICD-10-PCS; 2021-07-28)
PROC: 0D9770Z Drainage of Stomach, Pylorus with Drainage Device, Via Natural or Artificial Opening (ICD-10-PCS; 2021-07-28)
DX: K56.50 Intestinal adhesions [bands], unspecified as to partial versus complete obstruction (principal); E44.0 Moderate protein-calorie malnutrition; Z68.1 Body mass index [BMI] 19.9 or less, adult; E87.1 Hypo-osmolality and hyponatremia; Z20.822 Contact with and (suspected) exposure to COVID-19; E03.9 Hypothyroidism, unspecified; H35.30 Unspecified macular degeneration; I10 Essential (primary) hypertension; E78.00 Pure hypercholesterolemia, unspecified; R73.9 Hyperglycemia, unspecified; Z90.49 Acquired absence of other specified parts of digestive tract; Z91.041 Radiographic dye allergy status; Z88.6 Allergy status to analgesic agent; Z88.0 Allergy status to penicillin; Z79.890 Hormone replacement therapy; Z79.899 Other long term (current) drug therapy; Z85.038 Personal history of other malignant neoplasm of large intestine; Z98.890 Other specified postprocedural states; D64.9 Anemia, unspecified
CPT/HCPCS: 36415; 74178; 80048; 80053; 81003; 82565; 83605; 83735; 84100; 85025; 88307; 96365; 96366; 96375; C9113; J1100; J1650; J1956; J2270; J2405; J2704; J3010; J3475; J3480; J3490; J7050; Q9967; S0028; U0002

== ENCOUNTER 2021-08-13 11:52 | Inpatient (IN) | payer MEDICARE ==
[2021-08-13 12:53] LABS: ALT (SGPT) 16 U/L (8-55); AST (SGOT) 22 U/L (5-34); Albumin 3.8 g/dL (3.4-4.8); Alkaline Phosphatase 239 U/L (40-110); Anion Gap 18 mmol/L (10-20); BUN (Urea Nitrogen) 11 mg/dL (9.8-20.1); Bilirubin, Total 0.5 mg/dL (0.2-1.2); Calc. Creatinine Clearance 0 mL/min (70-130); Calcium 9.5 mg/dL (7.8-10.44); Carbon Dioxide 20 mmol/L (23-31); Chloride 102 mmol/L (98-107); Globulin 3.5 g/dL (2.4-3.5); Glucose 100 mg/dL (83-110); Lipase 153 U/L (8-78); Potassium 4.2 mmol/L (3.5-5.1); Protein, Total 7.3 g/dL (5.8-8.1); Sodium 136 mmol/L (136-145)
[2021-08-13 12:53] LABS: #Eosinphils 0.1 thou/uL (0.0-0.7); #Lymphocytes 1.4 thou/uL (1.20-3.40); #Monocytes 0.6 thou/uL (0.11-0.59); #Neutrophils 8.2 thou/uL (1.40-6.50); %Basophils 0.4 % (0.0-1.0); %Eosinophils 0.8 % (0.0-10.0); %Lymphocytes 13.4 % (21.0-51.0); %Monocytes 5.7 % (0.0-10.0); %Neutrophils 79.6 % (42.0-75.0); Hemoglobin 13.8 g/dL (12.0-16.0); Mean Corpuscular HGB CONC 33.3 g/dL (32.0-36.0); Mean Corpuscular Hemoglobin 34.1 pg (27.0-31.0); Mean Platelet Volume 6.3 fL (7.4-10.4); Platelet Count 464 thou/uL (130-400); RBC Distribution Width 11.7 % (11.5-14.5); Red Blood Cell (RBC) Count 4.03 mill/uL (4.20-5.40); White Blood Cell (WBC) Count 10.3 thou/uL (4.8-10.8)
[2021-08-13] MEDS ORDERED: diphenhydrAMINE 50 MG/ML VIAL ONE (15:27)
[2021-08-13] MEDS ORDERED: Famotidine/PF 20 mg/2ml Vial ONE (15:27)
[2021-08-13] MEDS ORDERED: Ondansetron PF 4 MG/2 ML Vial ONE (15:27)
[2021-08-13] MEDS ORDERED: methylPREDNISolone Sod Succ/PF 125 MG/2 ML VIAL ONE (15:27)
[2021-08-13] MEDS ORDERED: hydrALAZINE 20 MG/ML VIAL SLOW IVP PRN (16:52)
[2021-08-13] MEDS ORDERED: Dextrose 50% Abboject 50 ML SYRINGE SLOW IVP PRN (16:52)
[2021-08-13] MEDS ORDERED: Dextrose 5% in Water 1,000 ML IV PRN (16:52)
[2021-08-13 17:31] LABS: Bacteria/HPF None Seen HPF (None Seen); Bilirubin Negative (Negative); Blood, Urine Negative (Negative); Clarity Clear (Clear); Glucose, Urine (Dipstick) Normal (Negative); Ketone, Urine 10 mg/dL (Negative); Leukocyte 25 Leu/uL (Negative); Nitrite Negative (Negative); Protein, Urine (Dipstick) Negative (Neg-Trace); RBC/HPF 0-3 HPF (0-3); Squamous Epithelial 0-3 HPF (0-3); Urobilinogen Normal mg/dL (Less than 2); WBC/HPF 0-3 HPF (0-3); pH, Urine 6.5 (5.0-9.0)
[2021-08-13] MEDS: Morphine 4 MG/ML VIAL SLOW IVP PRN (19:05)
[2021-08-13 21:43] VITALS: BMI 15.0
[2021-08-13] MEDS: Famotidine/PF 20 mg/2ml Vial SLOW IVP SCH (21:45)
[2021-08-13] MEDS: D5 1/2 NS w/20 mEq KCL 1,000 ML IV SCH (21:45)
[2021-08-13] MEDS: Famotidine 20 MG TAB PO SCH (21:46)
[2021-08-13 23:16] LABS: Bilirubin Negative (Negative); Blood, Urine Negative (Negative); Clarity Clear (Clear); Glucose, Urine (Dipstick) Normal (Negative); Ketone, Urine 20 mg/dL (Negative); Leukocyte Negative Leu/uL (Negative); Nitrite Negative (Negative); Protein, Urine (Dipstick) Negative (Neg-Trace); Specific Gravity, Urine 1.044 (1.002-1.036); Urobilinogen Normal mg/dL (Less than 2)
[2021-08-14 00:58] LABS: SARS-CoV-2 NAA Rapid Test Not Detected (NotDetected)
[2021-08-14] MEDS: Morphine 4 MG/ML VIAL SLOW IVP PRN ×2 (03:04→11:37)
[2021-08-14] MEDS: D5 1/2 NS w/20 mEq KCL 1,000 ML IV SCH ×3 (03:51→15:33)
[2021-08-14 05:32] LABS: #Lymphocytes 0.8 thou/uL (1.20-3.40); #Monocytes 0.2 thou/uL (0.11-0.59); #Neutrophils 5.5 thou/uL (1.40-6.50); %Basophils 0.2 % (0.0-1.0); %Eosinophils 0.5 % (0.0-10.0); %Lymphocytes 11.6 % (21.0-51.0); %Neutrophils 84.7 % (42.0-75.0); Hemoglobin 12.3 g/dL (12.0-16.0); Mean Corpuscular Hemoglobin 32.6 pg (27.0-31.0); Mean Platelet Volume 7.2 fL (7.4-10.4); Platelet Count 258 thou/uL (130-400); RBC Distribution Width 11.9 % (11.5-14.5); Red Blood Cell (RBC) Count 3.77 mill/uL (4.20-5.40); White Blood Cell (WBC) Count 6.5 thou/uL (4.8-10.8)
[2021-08-14 05:53] LABS: Anion Gap 14 mmol/L (10-20); BUN (Urea Nitrogen) 10 mg/dL (9.8-20.1); Calc. Creatinine Clearance 44 mL/min (70-130); Carbon Dioxide 19 mmol/L (23-31); Chloride 104 mmol/L (98-107); Glucose 169 mg/dL (83-110); Potassium 4.8 mmol/L (3.5-5.1); Sodium 132 mmol/L (136-145)
[2021-08-14] MEDS: Famotidine/PF 20 mg/2ml Vial SLOW IVP SCH ×2 (08:34→20:10)
[2021-08-14] MEDS: Enoxaparin Sodium 40 MG/0.4 ML SYRINGE SC SCH (08:35)
[2021-08-14] MEDS: Famotidine 20 MG TAB PO SCH ×2 (08:36→20:35)
[2021-08-14] MEDS: Ondansetron PF 4 MG/2 ML Vial IVP PRN ×2 (09:25→16:35)
[2021-08-14] MEDS ORDERED: diphenhydrAMINE 50 MG/ML VIAL IVP PRN (19:47)
[2021-08-14] MEDS: Promethazine HCl 25 MG/ML VIAL IM PRN (20:10)
[2021-08-15] MEDS: D5 1/2 NS w/20 mEq KCL 1,000 ML IV SCH ×3 (00:30→20:59)
[2021-08-15] MEDS: Ondansetron PF 4 MG/2 ML Vial IVP PRN ×3 (03:25→18:48)
[2021-08-15] MEDS: Famotidine 20 MG TAB PO SCH ×2 (09:27→20:53)
[2021-08-15] MEDS: Famotidine/PF 20 mg/2ml Vial SLOW IVP SCH ×2 (09:58→20:54)
[2021-08-15] MEDS: Enoxaparin Sodium 40 MG/0.4 ML SYRINGE SC SCH (10:01)
[2021-08-15] MEDS: Promethazine HCl 25 MG/ML VIAL IM PRN ×2 (11:16→20:59)
[2021-08-15] MEDS: Morphine 4 MG/ML VIAL SLOW IVP PRN ×2 (11:17→18:46)
[2021-08-16] MEDS: Ondansetron PF 4 MG/2 ML Vial IVP PRN (01:59)
[2021-08-16] MEDS: Morphine 4 MG/ML VIAL SLOW IVP PRN ×2 (02:00→04:19)
[2021-08-16 05:35] LABS: #Basophils 0.1 thou/uL (0.0-0.2); #Eosinphils 0.2 thou/uL (0.0-0.7); #Lymphocytes 1.8 thou/uL (1.20-3.40); #Monocytes 0.8 thou/uL (0.11-0.59); #Neutrophils 7.6 thou/uL (1.40-6.50); %Basophils 0.8 % (0.0-1.0); %Eosinophils 1.7 % (0.0-10.0); %Lymphocytes 17.6 % (21.0-51.0); %Monocytes 7.7 % (0.0-10.0); %Neutrophils 72.2 % (42.0-75.0); Hemoglobin 13.7 g/dL (12.0-16.0); Mean Corpuscular HGB CONC 33.2 g/dL (32.0-36.0); Mean Corpuscular Hemoglobin 34.4 pg (27.0-31.0); Mean Platelet Volume 6.4 fL (7.4-10.4); Platelet Count 367 thou/uL (130-400); RBC Distribution Width 11.9 % (11.5-14.5); Red Blood Cell (RBC) Count 3.98 mill/uL (4.20-5.40); White Blood Cell (WBC) Count 10.5 thou/uL (4.8-10.8)
[2021-08-16 05:58] LABS: Anion Gap 13 mmol/L (10-20); BUN (Urea Nitrogen) Less than 4 mg/dL (9.8-20.1); Calc. Creatinine Clearance 43 mL/min (70-130); Calcium 8.1 mg/dL (7.8-10.44); Carbon Dioxide 23 mmol/L (23-31); Chloride 102 mmol/L (98-107); Glucose 90 mg/dL (83-110); Potassium 4.8 mmol/L (3.5-5.1); Sodium 133 mmol/L (136-145)
[2021-08-16] MEDS: Famotidine/PF 20 mg/2ml Vial SLOW IVP SCH ×2 (09:29→20:44)
[2021-08-16] MEDS: Enoxaparin Sodium 40 MG/0.4 ML SYRINGE SC SCH (09:29)
[2021-08-16] MEDS: Famotidine 20 MG TAB PO SCH ×2 (09:30→20:48)
[2021-08-16] MEDS: D5 1/2 NS w/20 mEq KCL 1,000 ML IV SCH (09:31)
[2021-08-16] MEDS ORDERED: MD-Gastroview 120 ML BOT ONE (09:41)
[2021-08-17] MEDS: D5 1/2 NS w/20 mEq KCL 1,000 ML IV SCH ×2 (05:04→17:22)
[2021-08-17] MEDS: Enoxaparin Sodium 30 MG/0.3 ML SYRINGE SC SCH (08:39)
[2021-08-17] MEDS: Famotidine 20 MG TAB PO SCH ×2 (08:39→20:29)
[2021-08-17] MEDS: Morphine 4 MG/ML VIAL SLOW IVP PRN ×2 (09:41→20:34)
[2021-08-17] MEDS: Ondansetron PF 4 MG/2 ML Vial IVP PRN ×2 (09:47→20:44)
[2021-08-17] MEDS: Famotidine/PF 20 mg/2ml Vial SLOW IVP SCH ×2 (09:52→21:01)
[2021-08-17] MEDS ORDERED: traMADol HCl 50 MG TAB PO PRN (11:11)
[2021-08-17] MEDS ORDERED: Alendronate Sodium 70 mg Tablet PO SCH (11:15)
[2021-08-17] MEDS ORDERED: Gabapentin 100 MG CAP PO SCH (21:00)
[2021-08-17] MEDS ORDERED: Calcium Carbonate 600 MG + Vit D TAB PO SCH (21:00)
[2021-08-18] MEDS: Promethazine HCl 25 MG/ML VIAL IM PRN (01:20)
[2021-08-18 03:49] VITALS: TEMP 97.9
[2021-08-18] MEDS ORDERED: Levothyroxine Sodium 75 MCG TAB PO SCH (06:00)
[2021-08-18 08:00] VITALS: BP 135/80
[2021-08-18] MEDS: Famotidine 20 MG TAB PO SCH (08:29)
[2021-08-18] MEDS: Enoxaparin Sodium 30 MG/0.3 ML SYRINGE SC SCH (08:30)
== END 2021-08-18 13:30 | disposition home or self-care (01) | DRG 394 ==
LOC: ERS 11:52 → SJJU 16:52 → OBSVTOIN 08-17 11:12
PROVIDERS: ADMIT Surgery; ATTEND Surgery
DX: K91.89 Other postprocedural complications and disorders of digestive system (principal); K56.7 Ileus, unspecified; N13.30 Unspecified hydronephrosis; Z20.822 Contact with and (suspected) exposure to COVID-19
CPT/HCPCS: 36415; 36416; 74019; 74177; 74250; 80048; 80053; 81003; 81015; 83605; 83690; 84484; 85025; 93005; 96372; 96374; 96375; 96376; G0378; J1200; J1650; J2270; J2405; J2550; J2930; J3480; Q9963; S0028; U0002

== ENCOUNTER 2024-06-29 08:25 | Outpatient (CLI) | payer MEDICARE | END 2024-06-29 08:26 | disposition home or self-care (01) | LOC: BICMAMMO 08:25 | PROVIDERS: ATTEND Family Medicine | DX: M81.0 Age-related osteoporosis without current pathological fracture (principal); M85.851 Other specified disorders of bone density and structure, right thigh; M85.852 Other specified disorders of bone density and structure, left thigh | CPT/HCPCS: 77080 ==